=== PATIENT | female | born 1980 | race Caucasian/White ===

== ENCOUNTER → 2017-02-03 | Day surgery (SDC) | payer BC ==
[2017-01-20 09:54] VITALS: Ht 165.1 cm; Wt 97.7 kg
[~2017-02-03] VITALS: Ht 165.1 cm; Wt 97.7 kg
[~2017-02-03] MED LIST: ATEN-173 PO; CEFD1CAP14 PO; LIDOCAINE HCL 2% 2 ML VIAL (20MG/ML) ONE; LISI-461 PO; MIDAZOLAM HCL 1 MG/ML 2ML VIAL ONE; ONDANSETRON INJ 2 MG/ML 2 ML VIAL ONE; PROPOFOL IV EMULSION 10 MG/ML 20 ML VIAL IV ONE; SODIUM CHLORIDE 0.9% 500ML 500 ML IV ONE; TOPI100T20 PO; VENL150T33 PO
[2017-02-03 13:45] VITALS: TEMP 37
--- NOTE | 2017-02-03 14:26 | Endo History and Physical ---
History & Physical Date of Service: Feb 03, 2017. Chief Complaint: RECTAL BLEEDING Referring Physician: DR. ALVAREZ History of Present Illness colonoscopy rectal bleeding Past Surgical History Hx Cardiac Surgery: No Hx Internal Defibrillator: No Hx Pacemaker: No Hx Abdominal Surgery: Yes () Hx of Implantable Prosthesis: No Hx Post-Op Nausea and Vomiting: No Hx Cancer Surgery: No Hx Thoracic Surgery: No Hx Orthopedic: No Hx Urinary Tract Surgery: No Family History Colon CA Social History Smoking Status: Never Smoker Hx Substance Use: No Hx Alcohol Use: No Allergies Coded Allergies: Amoxicillin (Verified Allergy, Unknown, HIVES, 02/03/17) Current Medications Reported Home Medications Medications Dose Route/Sig Max Daily Dose Days Date Category Topamax (Topiramate) 100 Mg Tab 2 Tabs PO HS 01/20/17 Reported Venlafaxine Hcl Er (Venlafaxine Hcl) 150 Mg Tab 1 Tab PO HS 01/20/17 Reported Zestril (Lisinopril) 10 Mg Tab 10 Mg PO HS 08/02/13 Reported Tenormin (Atenolol) 25 Mg Tab 25 Mg PO HS 08/02/13 Reported Vital Signs Weight (Kilograms): 97.73 Height (Feet): 5 Height (Inches): 5 Date Time Temp Pulse Resp B/P Pulse Ox O2 Delivery O2 Flow Rate FiO2 02/03/17 13:45 37 78 20 176/94 99 Room Air 0 Physical Exam AAO x3 Nl s`1s2 Lungs CTA Abd soft NT/ND + BS - CCE Assessment and Plan colonoscopy
--- NOTE | 2017-02-03 14:50 | Discharge Instructions ---
Endoscopy Patient Instructions Date / Procedure(s) Performed Feb 03, 2017. Colonoscopy Allergy Information Coded Allergies: Amoxicillin (Verified Allergy, Unknown, HIVES, 02/03/17) Discharge Date / Findings Feb 03, 2017. hemorrhoids Medication Instructions Restart Stopped Medication(s): Reported Home Medications Medications Dose Route/Sig Max Daily Dose Days Date Category Topamax (Topiramate) 100 Mg Tab 2 Tabs PO HS 01/20/17 Reported Venlafaxine Hcl Er (Venlafaxine Hcl) 150 Mg Tab 1 Tab PO HS 01/20/17 Reported Zestril (Lisinopril) 10 Mg Tab 10 Mg PO HS 08/02/13 Reported Tenormin (Atenolol) 25 Mg Tab 25 Mg PO HS 08/02/13 Reported Reported Home Medications Medications Dose Route/Sig Max Daily Dose Days Date Category Topamax (Topiramate) 100 Mg Tab 2 Tabs PO HS 01/20/17 Reported Venlafaxine Hcl Er (Venlafaxine Hcl) 150 Mg Tab 1 Tab PO HS 01/20/17 Reported Zestril (Lisinopril) 10 Mg Tab 10 Mg PO HS 08/02/13 Reported Tenormin (Atenolol) 25 Mg Tab 25 Mg PO HS 08/02/13 Reported Provider Instructions Activity Restrictions - No exercising or heavy lifting for 24 hours. - Do not drink alcohol the day of the procedure. - Do not drive a car or operate machinery until the day after the procedure. - Do not make any important decisions or sign important papers in 24 hours after the procedure. Following Day: - Return to full activity which may include returning to work/school. Diet Start your diet with liquids and light foods (jello, soup, juice, toast). Then eat your usual diet if not nauseated. Treatment For Common After Affects For mild abdominal pain, bloating, or excessive gas: - Rest - Eat lightly - Lie on right side Follow-Up Information Follow-up with DR. ALVAREZ as scheduled Anesthesia Information What You Should Know You have had a procedure that required some medicine to reduce anxiety and discomfort. This treatment is called moderate sedation. After receiving the treatment, you may be sleepy, but you will be able to breathe on your own. The effects of the treatment may last for several hours. Follow these instructions along with Activity/Diet recommendations noted above: * Do NOT do anything where dizziness or clumsiness would be dangerous. * Rest quietly at home today, then you can be up and about tomorrow. * Have a responsible person stay with you the rest of today. * You may have had an I.V. today. If so, you may take the dressing off later today. Recommendations Call your doctor if: * Trouble breathing * Continuous vomiting for more than 24 hours * Temperature above 101 degrees * Severe abdominal pain or bloating * Pain not relieved by pain medicine ordered * There is increased drainage or redness from any incision * A large amount of rectal bleeding greater than 2-3 tablespoons. (If you had a polyp/s removed or have hemorrhoids, a small amount of blood - from the rectum is to be expected.) * You have any unanswered questions or concerns. IN THE EVENT OF A SERIOUS EMERGENCY, GO TO THE NEAREST EMERGENCY ROOM Your discharge instructions were prepared by provider Remberto Garcia. Patient Instructions Signature Page Colleen Ragland Patient (or Guardian) Signature/Date: I have read and understand the instructions given to me by my caregivers. Caregiver/RN/Doctor Signature/Date: The above-named patient and/or guardian has received patient instructions on this date. + Original Patient Signature Page (only) stays with chart. Please make copy for patient.
--- NOTE | 2017-02-03 15:01 | GI REPORT ---
Procedure Date: 02/03/2017 2:09 PM Procedure: Colonoscopy Indications: Rectal bleeding, Change in bowel habits, Constipation Medicines: Propofol per Anesthesia Complications: No immediate complications. Estimated blood loss: None. Estimated Blood Loss: Estimated blood loss: none. Procedure: Pre-Anesthesia Assessment: - Prior to the procedure, a History and Physical was performed, and patient medications and allergies were reviewed. The patient's tolerance of previous anesthesia was also reviewed. The risks and benefits of the procedure and the sedation options and risks were discussed with the patient. All questions were answered, and informed consent was obtained. Prior Anticoagulants: The patient has taken no previous anticoagulant or antiplatelet agents. ASA Grade Assessment: II - A patient with mild systemic disease. After reviewing the risks and benefits, the patient was deemed in satisfactory condition to undergo the procedure. After I obtained informed consent, the scope was passed under direct vision. Throughout the procedure, the patient's blood pressure, pulse, and oxygen saturations were monitored continuously. The Scope was introduced through the anus and advanced to the terminal ileum, with identification of the appendiceal orifice and IC valve. The colonoscopy was performed without difficulty. The patient tolerated the procedure well. The quality of the bowel preparation was good. Findings: The perianal and digital rectal examinations were normal. Pertinent negatives include normal sphincter tone, no palpable rectal lesions and no anal lesion or abnormality was detected. The colon (entire examined portion) appeared normal. Non-bleeding internal hemorrhoids were found during retroflexion. The hemorrhoids were mild and small. The terminal ileum appeared normal. The retroflexed view of the distal rectum and anal verge was normal and showed no anal or rectal abnormalities. Impression: - The entire examined colon is normal. - Non-bleeding internal hemorrhoids. - The examined portion of the ileum was normal. - The distal rectum and anal verge are normal on retroflexion view. - No specimens collected. Recommendation: - Discharge patient to home (ambulatory). - Resume regular diet. - Continue present medications. - Repeat colonoscopy at age 48 for screening purposes. MD Remberto Ambrosio MD 02/03/2017 2:59:33 PM This report has been signed electronically. Note Initiated On: 02/03/2017 2:09 PM I attest to the content of the Intraoperative Record and orders documented therein, exceptions below
--- NOTE | 2017-02-03 15:18 | Anesthesiology Progress Note ---
Anesthesia Post Op Note Date & Time Feb 03, 2017 at 15:17 Vital Signs Pain Intensity: 0 Vital Signs Past 12 Hours Date Time Temp Pulse Resp B/P Pulse Ox O2 Delivery O2 Flow Rate FiO2 02/03/17 15:07 68 20 119/73 98 Room Air 02/03/17 14:51 68 20 95/64 100 Room Air 02/03/17 13:45 37 78 20 176/94 99 Room Air 0 Notes Mental Status: alert / awake / arousable, participated in evaluation Pt Amnestic to Procedure: Yes Nausea / Vomiting: adequately controlled Pain: adequately controlled Airway Patency, RR, SpO2: stable & adequate BP & HR: stable & adequate Hydration State: stable & adequate Anesthetic Complications: no major complications apparent
[2017-02-03 15:22] VITALS: BP 112/74; PULSE 70; O2SAT 99
== END | disposition home or self-care (01) ==
LOC: C.GI 13:30
PROVIDERS: ATTEND Internal Medicine Gastroenterology
DX: K62.5 Hemorrhage of anus and rectum (principal); K59.00 Constipation, unspecified; K64.8 Other hemorrhoids; Z80.0 Family history of malignant neoplasm of digestive organs; Z88.1 Allergy status to other antibiotic agents; Z98.890 Other specified postprocedural states

== ENCOUNTER 2017-07-05 19:01 | Emergency (ER) | payer BC ==
[~2017-07-05] VITALS: Ht 165.1 cm; Wt 107.1 kg
[~2017-07-05 19:01] MED LIST changes: -CEFD1CAP14 PO; -LIDOCAINE HCL 2% 2 ML VIAL (20MG/ML) ONE; -MIDAZOLAM HCL 1 MG/ML 2ML VIAL ONE; -ONDANSETRON INJ 2 MG/ML 2 ML VIAL ONE; -PROPOFOL IV EMULSION 10 MG/ML 20 ML VIAL IV ONE; -SODIUM CHLORIDE 0.9% 500ML 500 ML IV ONE
[2017-07-05 19:26] VITALS: TEMP 36.7; Ht 165.1 cm; Wt 107.1 kg
[2017-07-05] MEDS ORDERED: MoRPHine SULFATE 2 MG/ML CARP IV STA (21:00)
[2017-07-05] MEDS ORDERED: SODIUM CHLORIDE 0.9% 1000ML 1,000 ML IV STA (21:00)
[2017-07-05] MEDS ORDERED: SODIUM CHLORIDE 0.9% 1000ML 1,000 ML IV ONE (21:00)
[2017-07-05] MEDS ORDERED: ONDANSETRON INJ 2 MG/ML 2 ML VIAL IV STA (21:00)
--- NOTE | 2017-07-05 21:02 | EMERGENCY ROOM VISIT NOTE ---
History Report prepared by Benson: Gonzalo Hawkins Under the Supervision of: Dr. Omar Zambrano M.D. First contact with patient: 20:47 Chief Complaint: FLANK PAIN Stated Complaint: PAIN R SIDE History of Present Illness The patient is a 36 year old female who presents to the Emergency Room with complaints of persistent right lower abdominal pain that started yesterday. She says that the aching pain has been constant, but worsens to a stabbing pain when she stands up. She adds that the pain occasionally radiates to the right side of her back. The patient adds that she has been feeling feverish with chills, and has been having intermittent nausea. The patient says that she had a short episode of sharp chest pain earlier today. She denies any shortness of breath, urinary symptoms, leg pain, or any recent major lifting or strain. The patient notes that she had blood in her stool discovered during a colonoscopy in January. She says that she has a history of hypertension and epilepsy. Her last seizure was not recent. The patient has a history of a hysterectomy, but still has her ovaries, appendix, and gallbladder. She denies any chance of or any history of kidney stones. Source of History: patient, friend Onset: Yesterday Position: abdomen (RLQ) Quality: ache, stabbing (when standing up) Timing: other (persistent) Modifying Factors (Worsening): other (standing up) Associated Symptoms: + fevers, + chills, + chest pain, + nausea, + back pain , No SOB Note: Associated symptoms: Denies leg pain or any recent major lifting or strain. Review of Systems See HPI for pertinent positives & negatives. A total of 10 systems reviewed and were otherwise negative. Past Medical & Surgical Medical Problems: (1) Epilepsy (2) HTN (hypertension) Surgical Problems: (1) History of hysterectomy Old medical records were reviewed. Nurse's notes were reviewed and I agree with. She still has her appendix. Previous hysterectomy Family History No pertinent family history Social History Smoking Status: Never Smoker Alcohol Use: none Marital Status: Current/Historical Medications Scheduled Atenolol (Tenormin), 25 MG PO HS Topiramate (Topamax), 2 TABS PO HS Venlafaxine Hcl (Venlafaxine Hcl Er), 1 TAB PO HS Allergies Coded Allergies: Amoxicillin (Verified Allergy, Unknown, HIVES, 07/05/17) Physical Exam Vital Signs Date Time Temp Pulse Resp B/P (MAP) Pulse Ox O2 Delivery O2 Flow Rate FiO2 07/05/17 23:18 66 18 118/79 99 Room Air 07/05/17 22:12 70 16 120/75 99 Room Air 07/05/17 19:26 36.7 85 16 169/99 100 Room Air Physical Exam General: Well developed well nourished non ill-appearing young female in no acute distress, breathing comfortably on room air. Normal speech HEENT: Normal cephalic atraumatic. Pupils are equal round and reactive to light. Extraocular movements are intact. Oropharynx is pink with moist mucous membranes. No swelling of the mouth lips or tongue. Neck: Supple with a midline trachea. No meningeal signs or stiffness, no JVD or bruits. No Stridor. Chest: Clear to auscultation bilaterally. No wheezes or rhonchi. No increased work of breathing. Heart: regular rate and rhythm. Abdomen: Moderately tender in right lower abdomen, pain worse with movement and palpation. No rash. Soft and nondistended without rebound guarding or rigidity. Extremities: No cyanosis clubbing or edema. No calf tenderness or assymetry Spine/Back. Non tender to palpation. No CVA tenderness Skin: Good turgor without rashes. Neurologic exam: Cranial nerves two through 12 are intact. Motor and sensation are intact and symmetrical throughout. Medical Decision & Procedures Laboratory Results 07/05/17 21:49 Red Blood Count 4.28, Mean Corpuscular Volume 92.1, Mean Corpuscular Hemoglobin 30.1, Mean Corpuscular Hemoglobin Concent 32.7, Mean Platelet Volume 10.3, Neutrophils (%) (Auto) 61.7, Lymphocytes (%) (Auto) 29.4, Monocytes (%) (Auto) 6.8, Eosinophils (%) (Auto) 1.4, Basophils (%) (Auto) 0.6, Neutrophils # (Auto) 5.59, Lymphocytes # (Auto) 2.67, Monocytes # (Auto) 0.62, Eosinophils # (Auto) 0.13, Basophils # (Auto) 0.05 07/05/17 23:01 Test 07/05/17 21:00 07/05/17 21:49 07/05/17 21:54 07/05/17 23:01 Urine Color YELLOW Urine Appearance CLOUDY (CLEAR) Urine pH 7.0 (4.5-7.5) Urine Specific [place] 1.022 (1.000-1.030) Urine Protein NEG (NEG) Urine Glucose (UA) NEG (NEG) Urine Ketones TRACE (NEG) Urine Occult Blood NEG (NEG) Urine Nitrite NEG (NEG) Urine Bilirubin NEG (NEG) Urine Urobilinogen NEG (NEG) Urine Leukocyte Esterase NEG (NEG) Urine WBC (Auto) 5-10 /hpf (0-5) Urine RBC (Auto) 0-4 /hpf (0-4) Urine Hyaline Casts (Auto) 1-5 /lpf (0-5) Urine Epithelial Cells (Auto) >30 /lpf (0-5) Urine Bacteria (Auto) NEG (NEG) Urine Renal Epithelial Cells 0-5 /lpf (0-5) Urine Yeast (Auto) (NONE PRSENT) White Blood Count 9.07 K/uL (4.8-10.8) Red Blood Count 4.28 M/uL (4.2-5.4) Hemoglobin 12.9 g/dL (12.0-16.0) Hematocrit 39.4 % (37-47) Mean Corpuscular Volume 92.1 fL (80-100) Mean Corpuscular Hemoglobin 30.1 pg (25-34) Mean Corpuscular Hemoglobin Concent 32.7 g/dl (32-36) Platelet Count 253 K/uL (130-400) Mean Platelet Volume 10.3 fL (7.4-10.4) Neutrophils (%) (Auto) 61.7 % Lymphocytes (%) (Auto) 29.4 % Monocytes (%) (Auto) 6.8 % Eosinophils (%) (Auto) 1.4 % Basophils (%) (Auto) 0.6 % Neutrophils # (Auto) 5.59 K/uL (1.4-6.5) Lymphocytes # (Auto) 2.67 K/uL (1.2-3.4) Monocytes # (Auto) 0.62 K/uL (0.11-0.59) Eosinophils # (Auto) 0.13 K/uL (0-0.5) Basophils # (Auto) 0.05 K/uL (0-0.2) RDW Standard Deviation 43.8 fL (36.4-46.3) RDW Coefficient of Variation 13.1 % (11.5-14.5) Immature Granulocyte % (Auto) 0.1 % Immature Granulocyte # (Auto) 0.01 K/uL (0.00-0.02) Human Chorionic Gonadotropin, Qual NEG (NEG) Anion Gap 6.0 mmol/L (3-11) Est Creatinine Clear Calc Drug Dose 95.6 ml/min Estimated GFR () 85.9 Estimated GFR (Non- 74.1 BUN/Creatinine Ratio 13.8 (10-20) Calcium Level 8.1 mg/dl (8.5-10.1) Total Bilirubin 0.3 mg/dl (0.2-1) Direct Bilirubin < 0.1 mg/dl (0-0.2) Aspartate Amino Transf (AST/SGOT) 12 U/L (15-37) Alanine Aminotransferase (ALT/SGPT) 26 U/L (12-78) Alkaline Phosphatase 48 U/L (45-117) Total Protein 6.7 gm/dl (6.4-8.2) Albumin 3.3 gm/dl (3.4-5.0) Lipase 153 U/L (73-393) Laboratory studies as stated above per my review. Medications Administered Medications (Trade) Dose Ordered Sig/Ruthie Route Start Time Stop Time Status Last Admin Dose Admin Sodium Chloride 1,000 ml @ 999 mls/hr Q1H1M STAT IV 07/05/17 21:00 07/05/17 22:00 DC 07/05/17 22:08 999 MLS/HR Sodium Chloride 1,000 ml @ 150 mls/hr Q6H40M ONCE IV 07/05/17 21:00 07/06/17 03:39 07/05/17 23:17 150 MLS/HR Ondansetron HCl (Zofran Inj) 4 mg NOW STAT IV 07/05/17 21:00 07/05/17 21:04 DC 07/05/17 22:08 4 MG Morphine Sulfate (MoRPHine SULFATE INJ) 2 mg NOW STAT IV 07/05/17 21:00 07/05/17 21:04 DC 07/05/17 22:10 2 MG Morphine Sulfate (MoRPHine SULFATE INJ) 4 mg NOW STAT IV 07/05/17 23:24 07/05/17 23:26 DC 07/05/17 23:44 4 MG ED Course 2050: Past medical records reviewed. The patient was evaluated in room B5, and a complete history and physical examination were performed. 2099: Ordered Morphine Sulfate Inj 2 mg IV, Zofran Inj 4 mg IV, NSS 1000 ml @ 150 mls/hr IV, NSS 1000 ml @ 999 mls/hr IV. 2131: I reevaluated the patient and she is comfortable. Medical Decision Differentials include but are not limited to: appendicitis, ovarian pathology, kidney stone, , electrolyte or metabolic abnormality. This patient comes in as described above. She's having lower abdominal pain , mostly on the right. She has no peritonitis. IV access established was hydrated with IV normal saline. Multiple blood tests was obtained urinalysis and culture was obtained. I did order noncontrast CAT scan as well. She has no white count or fever to suggest infection. She was initially given IV morphine and Zofran helped a little bit she was given additional dose of morphine and was resting very comfortably. Her urine does not suggest UTI. She is not . She's had a hysterectomy. She had a CAT scan there is no appendicitis or other pathology with exception of 2 cysts on the right ovary. Clinically I do not think she likely has ovarian torsion this been going on since yesterday she looks well. She is not anemic. She's had no electrode or metabolic abnormality. She will use ibuprofen 400 mg every 6 hours for pain and return if : increasing pain, worsening of symptoms, fever or chills, any new problems or concerns. Medication Reconcilliation Current Medication List: was personally reviewed by me Blood Pressure Screening Patient's blood pressure: Elevated blood pressure Blood pressure disposition: Elevated BP felt to be situational, Referred to PCP Impression Primary Impression: RLQ abdominal pain Scribe Attestation The scribe's documentation has been prepared under my direction and personally reviewed by me in its entirety. I confirm that the note above accurately reflects all work, treatment, procedures, and medical decision making performed by me. Departure Information Referrals Mar Ho DO (PCP) Patient Instructions My [facility]
[2017-07-05 21:41] LABS: URINE APPEARANCE CLOUDY (CLEAR); URINE BILIRUBIN NEG (NEG); URINE COLOR YELLOW; URINE EPITHELIAL CELL AUTO >30 /lpf (0-5); URINE NITRITE NEG (NEG); URINE SPECIFIC GRAVITY 1.022 (1.000-1.030); UROBILINOGEN NEG (NEG)
[2017-07-05 21:42] LABS: MANUAL MICROSCOPIC REQUIRED? NO; REVIEW REQ? YES
[2017-07-05 22:03] LABS: BASO % 0.6 %; BASO ABS # 0.05 K/uL (0-0.2); COMPLETE YES; EOS % 1.4 %; HEMATOCRIT 39.4 % (37-47); IG% 0.1 %; LYMPH % 29.4 %; LYMPH ABS # 2.67 K/uL (1.2-3.4); MEAN CELL VOLUME 92.1 fL (80-100); MEAN CORPUSCULAR HEMOGLOBIN 30.1 pg (25-34); MEAN CORPUSCULAR HGB CONC 32.7 g/dl (32-36); MEAN PLATELET VOLUME 10.3 fL (7.4-10.4); MONO % 6.8 %; NEUT % 61.7 %; PLATELET COUNT 253 K/uL (130-400); RED BLOOD COUNT 4.28 M/uL (4.2-5.4); WHITE BLOOD COUNT 9.07 K/uL (4.8-10.8)
[2017-07-05 22:32] LABS: PREG INTERNAL NEGATIVE QC NEG CLEAR BACKGROUND; PREG INTERNAL POSITIVE QC POS CONTROL LINE
--- NOTE | 2017-07-05 22:50 | DIAGNOSTIC IMAGING REPORT ---
ABD/PELVIS NO IV OR ORAL CONT CT DOSE: 1319.70 mGy.cm HISTORY: Flank pain eval for appy TECHNIQUE: Multiaxial CT images of the abdomen and pelvis were performed without contrast. A dose lowering technique was utilized adhering to the principles of ALARA. COMPARISON STUDY: 01/08/2011 FINDINGS: Lung bases are clear. Liver spleen and pancreas are unremarkable. Kidneys are considered negative for hydronephrosis. Bowel pattern is nonobstructive. The appendix is normal. There are 2 right ovarian cysts measuring 4.5 and 4.2 cm. Pelvic bowel pattern is nonobstructive. Bladder is midline. IMPRESSION: 1. Right ovarian cysts measuring 4.5 and 4.2 cm.. 2. Normal appendix. 3. Otherwise negative study The above report was generated using voice recognition software. It may contain grammatical, syntax or spelling errors. Electronically signed by: Vic Lisa M.D. 07/05/2017 10:49 PM Dictated Date/Time: 07/05/2017 10:47 PM
[2017-07-05] MEDS ORDERED: MoRPHine SULFATE 4 MG/ML 1 ML CARP\\VIAL IV STA (23:24)
[2017-07-05 23:43] LABS: ALKALINE PHOSPHATASE 48 U/L (45-117); ALT/SGPT 26 U/L (12-78); AST/SGOT 12 U/L (15-37)
[2017-07-05 23:51] LABS: CHLORIDE 109 mmol/L (98-107); POTASSIUM 3.7 mmol/L (3.5-5.1); SODIUM 141 mmol/L (136-145)
[2017-07-05 23:53] LABS: BLOOD UREA NITROGEN 13 mg/dl (7-18); BUN/CREATININE RATIO 13.8 (10-20); CALCIUM 8.1 mg/dl (8.5-10.1); CARBON DIOXIDE 26 mmol/L (21-32); CREATININE 0.97 mg/dl (0.60-1.20); GLUCOSE 86 mg/dl (70-99)
[2017-07-06 00:21] VITALS: BP 122/73; PULSE 70; O2SAT 97
== END 2017-07-06 00:22 | disposition home or self-care (01) ==
LOC: C.EDB 19:02
DX: R10.31 Right lower quadrant pain (principal); I10 Essential (primary) hypertension; G40.909 Epilepsy, unspecified, not intractable, without status epilepticus; Z79.899 Other long term (current) drug therapy

== ENCOUNTER → 2017-07-13 | Outpatient (CLI) | payer BC ==
[~2017-07-13] MED LIST changes: -LISI-461 PO
[2017-07-13 12:44] LABS: ALT/SGPT 29 U/L (12-78); BLOOD UREA NITROGEN 15 mg/dl (7-18); BUN/CREATININE RATIO 17.1 (10-20); CALCIUM 9.1 mg/dl (8.5-10.1); CARBON DIOXIDE 22 mmol/L (21-32); CHLORIDE 110 mmol/L (98-107); CHOLESTEROL 276 mg/dl (0-200); CREATININE 0.86 mg/dl (0.60-1.20); GLUCOSE 98 mg/dl (70-99); POTASSIUM 4.2 mmol/L (3.5-5.1); SODIUM 138 mmol/L (136-145)
[2017-07-13 12:53] LABS: ALB/GLOB RATIO 0.9 (0.9-2); ALKALINE PHOSPHATASE 53 U/L (45-117); AST/SGOT 24 U/L (15-37); HDL CHOLESTEROL 46 mg/dl; LDL CHOLESTEROL CALCULATED 186 mg/dl; TRIGLYCERIDES 222 mg/dl (0-150); VERY LOW DENSITY LIPOPROT CALC 44 mg/dl
== END | disposition home or self-care (01) ==
LOC: C.LABPBG 08:35
PROVIDERS: ATTEND Family Medicine
DX: R20.9 Unspecified disturbances of skin sensation (principal); I10 Essential (primary) hypertension; E78.00 Pure hypercholesterolemia, unspecified; R22.1 Localized swelling, mass and lump, neck

== ENCOUNTER → 2017-07-18 | Outpatient (CLI) | payer BC ==
--- NOTE | 2017-07-18 13:40 | DIAGNOSTIC IMAGING REPORT ---
PELVIC COMPLETE NON OB CLINICAL HISTORY: R10.31 Right lower quadrant abdominal painN83.209 Ovarian cyst PAIN. NAUSEA. COMPARISON STUDY: 08/10/2011 FINDINGS: The uterus measured prior hysterectomy. The endometrial stripe measured not applicable. The right ovary measured 3.5 cm maximum dimension. Several slightly heterogeneous cyst measuring 1.2, 1.5, and 1.9 cm peripherally.. The left ovary measured 2.6 cm with normal vascular flow. There is no ultrasonographic evidence of ovarian torsion. It should be noted that ovarian torsion can be present with normal Doppler ultrasonographic findings. There was no evidence of pathologic free pelvic fluid. IMPRESSION: Several small right ovarian cyst. Otherwise negative pelvic ultrasound post hysterectomy The above report was generated using voice recognition software. It may contain grammatical, syntax or spelling errors. Electronically signed by: Vic Lisa M.D. 07/18/2017 1:39 PM Dictated Date/Time: 07/18/2017 1:36 PM
--- NOTE | 2017-07-18 13:48 | DIAGNOSTIC IMAGING REPORT ---
NECK ULTRASONOGRAPHY CLINICAL HISTORY: R22.1 Lump in neck COMPARISON STUDY: No previous studies for comparison. FINDINGS: At the point of concern within the left neck below the chin, there is a 1 cm solid nodule which appears to represent a lymph node with thickened cortex. Multiple additional left-sided cervical lymph nodes are visualized. The largest is located adjacent to the carotid measuring 31 x 15 x 9 mm. IMPRESSION: The palpable left neck lymph node, appears to correspond to a lymph node with a thickened cortex. Clinical follow-up is recommended. If the patient is clinically felt to have an infection, then follow-up subsequent antibiotic therapy is recommended. If there is no suspicion over infection, then fine-needle aspiration biopsy should be considered at this time. Electronically signed by: Sony Cano M.D. 07/18/2017 1:47 PM Dictated Date/Time: 07/18/2017 1:43 PM
== END | disposition home or self-care (01) ==
LOC: C.ULTR 12:25
PROVIDERS: ATTEND Family Medicine
DX: R22.1 Localized swelling, mass and lump, neck (principal); N83.209 Unspecified ovarian cyst, unspecified side; R10.31 Right lower quadrant pain

== ENCOUNTER 2022-05-22 22:12 | Observation (INO) ==
[2022-05-22] MEDS ORDERED: dexAMETHasone**PF** 10 MG/ML VIAL IV ONE (22:58)
[2022-05-22] MEDS ORDERED: ONDANSETRON 4 MG OD TAB PO STA (22:58)
[2022-05-22] MEDS ORDERED: MoRPHine SULFATE 4 MG/ML 1 ML CARP\\VIAL IV STA (22:58)
--- NOTE | 2022-05-22 23:04 | Emergency Department Note ---
History of Present Illness General Chief complaint: Back Injury/Pain Stated complaint: RUPTURED VERTEBRAE IN BACK Time Seen by Provider: 05/22/22 22:54 History of Present Illness Maximum Pain Intensity: 10 This 41-year-old presents to the ER complaining of ongoing worsening low back pain that is rating down her right leg that was seen by myself beginning a month and had an MRI and is seeing family doctor and Ortho since then and has an appointment next week with pain management Location: low back Quality: Severe Severity: Severe Duration: Past month Timing: Started a month ago Context: Pain got worse and patient came back in Modifying factors: better with rest; worse with activity Patient states the family doctor has her gabapentin and this is not helping. She states the pain is much worse. She cannot tolerate it. She is having problems while ambulating. Patient denies chest pain, dyspnea, fevers, flulike illness, IV drug use. Home Medications Medication Instructions Recorded Confirmed Type topiramate 100 mg tablet 100 mg PO BID #180 tabs 11/18/21 05/22/22 Rx atenolol 25 mg tablet 25 mg PO DAILY #90 tabs 03/18/22 05/22/22 Rx venlafaxine 150 mg 150 mg PO DAILY #90 caps 03/18/22 05/22/22 Rx capsule,extended release 24 hr phentermine 37.5 mg capsule 37.5 mg PO QAM 05/06/22 05/22/22 History diclofenac sodium 75 mg 75 mg PO BID #60 tabs 05/11/22 05/22/22 Rx tablet,delayed release oxycodone 5 mg tablet 5 mg PO Q6H PRN pain #10 tabs 05/11/22 05/22/22 Rx gabapentin 300 mg capsule See Rx Instructions .Route 05/17/22 05/22/22 Rx .COMPLEX #90 caps acetaminophen 500 mg tablet 1,000 mg PO Q8 PRN Pain 05/22/22 05/22/22 History cyclobenzaprine 5 mg tablet 5 mg PO Q8 PRN Muscle Spasm 05/22/22 05/22/22 History Allergies Allergy/AdvReac Type Severity Reaction Status Date / Time amoxicillin Allergy Unknown HIVES Verified 05/22/22 23:34 Past Med/Surg History Medical History (Updated 05/23/22 @ 01:13 by Farhana Kaiser PA-C) Anxiety Epilepsy HTN (hypertension) Hypercholesterolemia Migraine without aura Obesity Surgical History H/O section S/P total hysterectomy (2012) w/ b/l salpingectomy, secondary to DUB Family History Aunt Breast cancer Seizures Grandmother (Maternal) Breast cancer Myocardial infarction Father Colorectal cancer Diabetes Prostate cancer Grandfather (Paternal) Seizures Mother Hypertension Migraines Denies family history of Ovarian cancer Social History Smoking Status: Never smoker Second Hand Exposure: Yes; Hx Alcohol Use: No Hx Substance Use: No Preferred Language: Monegasque Communication Ability: Effective Visual Impairment: No Limitations Hearing Ability: Normal 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 Required: No Beliefs That Will Affect Care: None marital status: Current Living Situation: Spouse and Family current occupational status: employed current occupation: [employer] Feels Safe at Home: Yes Childhood Exposure to Second-Hand Smoke: No Diet Comment: regular during the past year weight has: remained stable Dental Care, Regularly: Yes Physical Activity Frequency: 3-4 Times per Week Seatbelt Use: always Sunscreen Use: Yes Do you think of yourself as: straight/heterosexual Review of Systems A total of 10 systems reviewed and were otherwise negative Physical Exam Vital Signs Vital Signs - 24 hr 05/22/22 22:29 05/22/22 23:28 05/22/22 23:29 Temperature 36.9 C Temperature Source Temporal Artery Scan Pulse Rate 103 H 76 Pulse Rate [Finger] 74 Pulse Rhythm Regular Pulse Rhythm [Finger] Regular Pulse Strength [Finger] Normal Respiratory Rate 16 18 16 Respiratory Effort / Characteristics Non-Labored Spontaneous Respiratory Depth Normal Respiratory Pattern Regular Blood Pressure 156/109 H Blood Pressure [Right Arm] 147/82 H Blood Pressure Mean 124 Blood Pressure Mean [Right Arm] 103 Blood Pressure Position [Right Arm] Semi-fowlers Pulse Oximetry 98 97 97 Oxygen Delivery Method Room Air Room Air Room Air Oxygen Flow Rate 0 Sepsis Recent Fever Within 48 Hours No Sepsis New/Unexplained Change in Mental Status N/A Sepsis Action Taken by Nursing No Action Required VITALS: Vitals are noted on the nurse's note and reviewed by myself. Vital signs reviewed. GENERAL: Pleasant female who appears in pain, in no acute distress, nondiaphoretic, well-developed well-nourished. SKIN: The skin was without rashes, erythema, edema, or bruising. There is no tenting of the skin. Capillary reflex less than 2 seconds. HEAD: Normocephalic atraumatic. EARS: External auditory canals clear, EYES: Pupils equal round and reactive to light and accommodation. Conjunctivae without injection, sclerae without icterus. Extraocular movements intact. NOSE: Patent, turbinates without inflammation or discharge. MOUTH: Mucous membranes moist. Pharynx without erythema or exudate. Uvula midline. Airway patent. Tongue does not deviate. NECK: Supple without nuchal rigidity. No lymphadenopathy. No thyromegaly. Cervical spine is nontender. No JVD. HEART: Regular rate and rhythm LUNGS: Clear to auscultation bilaterally without wheezes, rales or rhonchi. No retractions or accessory muscle use. ABDOMEN: Positive bowel sounds x 4. Normal tympanic percussion. Soft, nontender, without masses or organomegaly. Ledesma sign negative. No guarding or rebound tenderness. No CVA tenderness MUSCULOSKELETAL: No muscle atrophy, erythema, or edema noted. No thoracic or lumbar tenderness on exam. Positive straight leg raise on the right. Patellar reflexes intact. NEURO: Patient was alert and oriented to person place and time. Normal sensation to light and sharp touch. No focal neurological deficits. Course Administered Medications Discontinued Medications Dexamethasone Sodium Phosphate (DexamethasonePf 10 Mg/Ml Vial) 10 mg IV NOW ONE Stop: 05/22/22 22:59 Last Admin: 05/22/22 23:25 Dose: 10 mg Documented By: EVELIO Acetaminophen (Ofirmev) 1,000 mg in 100 mls @ 400 mls/hr IV NOW STA Stop: 05/23/22 00:45 Last Admin: 05/23/22 00:50 Dose: 400 mls/hr Documented By: EVELIO Ketorolac Tromethamine (Ketorolac Tromethamine 15 Mg/Ml Vial) 10 mg IV NOW STA Stop: 05/23/22 00:32 Last Admin: 05/23/22 00:47 Dose: 10 mg Documented By: EVELIO Morphine Sulfate (Morphine Sulfate 4 Mg/Ml 1 Ml Carp\Vial) 4 mg IV NOW STA Stop: 05/22/22 22:59 Last Admin: 05/22/22 23:23 Dose: 4 mg Documented By: EVELIO Ondansetron HCl (Ondansetron 4 Mg Od Tab) 4 mg PO NOW STA Stop: 05/22/22 22:59 Last Admin: 05/22/22 23:21 Dose: 4 mg Documented By: EVELIO Medical Decision Making Medical Records Attestation: I reviewed the patient's medical records. Home Medications Current Medication List: was personally reviewed by me Laboratory Data Attestation: I reviewed the patient's lab results. Result diagrams: 05/22/22 23:19 05/22/22 23:19 Lab Results 05/22/22 05/22/22 05/22/22 Range/Units 23:19 23:19 23:19 WBC 8.73 (4.8-10.8) K/ul RBC 4.28 (3.93-5.22) M/uL Hgb 13.0 (12.0-16.0) g/dl Hct 39.7 (34.1-44.9) % MCV 92.8 (80.0-100.0) fL MCH 30.4 (25.0-34.0) pg MCHC 32.7 (32.0-36.0) g/dL RDW Std Deviation 44.2 (36.4-46.3) fL RDW Coeff of Norris 13.1 (11.5-14.5) % Plt Count 287 (130-400) K/uL MPV 9.7 (9.4-12.3) fL Immature Gran % (Auto) 0.3 % Neut % (Auto) 60.2 % Lymph % (Auto) 29.4 % Davie % (Auto) 7.7 % Eos % (Auto) 1.7 % Baso % (Auto) 0.7 % Neut # (Auto) 5.25 (1.4-6.5) K/uL Lymph # (Auto) 2.57 (1.2-3.4) K/uL Davie # (Auto) 0.67 (0.24-0.82) K/uL Eos # (Auto) 0.15 (0-0.50) K/uL Baso # (Auto) 0.06 (0-0.2) K/uL Immature Gran # (Auto) 0.03 H (0.00-0.02) K/uL Sodium 138 (136-145) mmol/L Potassium 3.4 L (3.5-5.1) mmol/L Chloride 107 (98-107) mmol/L Carbon Dioxide 23 (21-32) mmol/L Anion Gap 8 (3-11) BUN 17 (6-23) mg/dl Creatinine 0.97 (0.6-1.2) mg/dl Est Cr Clr Drug Dosing 90.2 ml/min Est GFR ( Amer) 82.9 ml/min Est GFR (Non-Af Amer) 71.5 ml/min BUN/Creatinine Ratio 17.5 (10-20) Glucose 149 H (70-99(Fasting)) mg/dl Calcium 9.3 (8.5-10.1) mg/dl Total Bilirubin 0.2 (0.2-1.0) mg/dl AST 12 L (13-39) U/L ALT 19 (7-52) U/L Alkaline Phosphatase 44 (34-104) U/L Total Protein 6.6 (6.0-8.3) gm/dl Albumin 3.7 (3.4-5.0) gm/dl Globulin 2.9 (2.5-4.0) gm/dl Albumin/Globulin Ratio 1.3 (0.9-2) HCG, Qual Negative (Negative) SARS-CoV-2, RNA, NAAT (NEGATIVE) 05/22/22 Range/Units 23:31 WBC (4.8-10.8) K/ul RBC (3.93-5.22) M/uL Hgb (12.0-16.0) g/dl Hct (34.1-44.9) % MCV (80.0-100.0) fL MCH (25.0-34.0) pg MCHC (32.0-36.0) g/dL RDW Std Deviation (36.4-46.3) fL RDW Coeff of Norris (11.5-14.5) % Plt Count (130-400) K/uL MPV (9.4-12.3) fL Immature Gran % (Auto) % Neut % (Auto) % Lymph % (Auto) % Davie % (Auto) % Eos % (Auto) % Baso % (Auto) % Neut # (Auto) (1.4-6.5) K/uL Lymph # (Auto) (1.2-3.4) K/uL Davie # (Auto) (0.24-0.82) K/uL Eos # (Auto) (0-0.50) K/uL Baso # (Auto) (0-0.2) K/uL Immature Gran # (Auto) (0.00-0.02) K/uL Sodium (136-145) mmol/L Potassium (3.5-5.1) mmol/L Chloride (98-107) mmol/L Carbon Dioxide (21-32) mmol/L Anion Gap (3-11) BUN (6-23) mg/dl Creatinine (0.6-1.2) mg/dl Est Cr Clr Drug Dosing ml/min Est GFR ( Amer) ml/min Est GFR (Non-Af Amer) ml/min BUN/Creatinine Ratio (10-20) Glucose (70-99(Fasting)) mg/dl Calcium (8.5-10.1) mg/dl Total Bilirubin (0.2-1.0) mg/dl AST (13-39) U/L ALT (7-52) U/L Alkaline Phosphatase (34-104) U/L Total Protein (6.0-8.3) gm/dl Albumin (3.4-5.0) gm/dl Globulin (2.5-4.0) gm/dl Albumin/Globulin Ratio (0.9-2) HCG, Qual (Negative) SARS-CoV-2, RNA, NAAT NEGATIVE (NEGATIVE) MDM Narrative Prior records/ancillary studies reviewed. Triage Nursing notes reviewed. Additional history obtained from family. The patient's history was concerning for back pain. Differential diagnosis: Etiologies such as musculoskeletal, disc herniation, fracture, aortic disease, metastatic disease, cord compression, discitis, infection, renal colic, gastrointestinal, acute exacerbation of chronic back pain, sciatica, cauda equina, as well as others were entertained. Physical findings: As above. ER treatment provided: Morphine Zofran Decadron, Tylenol, Toradol On reassessment the patient felt better. Diagnostics interpreted by me: The labs revealed stable H&H Imaging studies: Recent MRI was reviewed Consultation: A consultation was placed with hospitalist. The case was discussed and diagnostics were reviewed. She will be evaluated for possible admission. This appears to be consistent with intractable low back pain. Patient is requesting admission. Medicine was consulted. She will be evaluated for possible admission. By the evaluation outlined above emergent etiologies such as fracture, aortic disease, metastatic disease, infection, renal colic, gastrointestinal, cord compression, cauda equina, as well as others were deemed relatively unlikely. The pt informed about the findings as listed above. All questions were answered and pleased with the treatment. The chart was completed utilizing [employer] Speech voice recognition software. Grammatical errors, random word insertions, pronoun errors, and incomplete sentences are an occassional consequence of this system due to software limitations, ambient noise, and hardware issues. Any formal questions or concerns about the content, text, or information contained within the body of this dictation should be directly addressed to the physician transportation assistant for clarification. Impression & Plan Intractable low back pain, Lumbar radiculopathy Discharge Plan Visit Data Chief Complaint: Back Injury/Pain Stated Complaint: RUPTURED VERTEBRAE IN BACK ED Provider: Andria Dutta ED Midlevel Provider: Farhana Kaiser Discharge Problem: Intractable low back pain, Lumbar radiculopathy Patient Disposition: Being Evaluated by Hospitalist Condition: Good Forms Stand Alone Forms: [facility] [employer] Prescriptions Prescriptions: No Action topiramate 100 mg tablet 100 mg PO BID Qty: 180 1RF atenolol 25 mg tablet 25 mg PO DAILY Qty: 90 1RF venlafaxine 150 mg capsule,extended release 24hr 150 mg PO DAILY Qty: 90 1RF gabapentin 300 mg capsule See Rx Instructions .Route .COMPLEX Qty: 90 2RF Rx Instructions: Take 1 cap PO qhs x 3 days, then 1 cap PO BID x 3 days, then 1 cap PO TID; diclofenac sodium 75 mg tablet,delayed release (DR/EC) 75 mg PO BID Qty: 60 0RF oxycodone 5 mg tablet 5 mg PO Q6H PRN (Reason: pain) Qty: 10 0RF Rx Instructions: Initial Treatment cyclobenzaprine 5 mg tablet 5 mg PO Q8 PRN (Reason: Muscle Spasm) acetaminophen 500 mg tablet 1,000 mg PO Q8 PRN (Reason: Pain) phentermine 37.5 mg capsule 37.5 mg PO QAM Referrals Referrals: Mar Ho DO [Primary Care Provider] -
[2022-05-22 23:31] LABS: Basophils # (auto) 0.06 K/uL (0-0.2); Basophils % (auto) 0.7 %; Eosinophils # (auto) 0.15 K/uL (0-0.50); Eosinophils % (auto) 1.7 %; Hematocrit (blood only) 39.7 % (34.1-44.9); Immature Granulocytes # (auto) 0.03 K/uL (0.00-0.02); Immature Granulocytes % (auto) 0.3 %; Lymphocytes # (auto) 2.57 K/uL (1.2-3.4); Lymphocytes % (auto) 29.4 %; Mean Corpuscular Hemoglobin 30.4 pg (25.0-34.0); Mean Corpuscular Hgb Conc 32.7 g/dL (32.0-36.0); Mean Corpuscular Volume 92.8 fL (80.0-100.0); Mean Platelet Volume 9.7 fL (9.4-12.3); Monocytes # (auto) 0.67 K/uL (0.24-0.82); Monocytes % (auto) 7.7 %; Neutrophils # (auto) 5.25 K/uL (1.4-6.5); Neutrophils % (auto) 60.2 %; Platelet Count 287 K/uL (130-400); RDW Coefficient of Variation 13.1 % (11.5-14.5); RDW Standard Deviation 44.2 fL (36.4-46.3); Red Blood Count 4.28 M/uL (3.93-5.22); White Blood Count 8.73 K/ul (4.8-10.8)
[2022-05-22 23:51] LABS: Albumin Globulin Ratio 1.3 (0.9-2); Albumin Level 3.7 gm/dl (3.4-5.0); BUN Creatinine Ratio 17.5 (10-20); Bilirubin,Total 0.2 mg/dl (0.2-1.0); Calcium 9.3 mg/dl (8.5-10.1); Creatinine Clr Calc Pharmacy 90.2 ml/min; Est GFR (African American) 82.9 ml/min; Est GFR (Non-African American) 71.5 ml/min; Globulin 2.9 gm/dl (2.5-4.0); Potassium 3.4 mmol/L (3.5-5.1); Total Protein 6.6 gm/dl (6.0-8.3)
[2022-05-22 23:53] LABS: Pregnancy Test, Serum Negative (Negative)
[2022-05-23] MEDS ORDERED: ACETAMINOPHEN 1,000 MG/100 ML VIAL IV STA (00:31)
[2022-05-23] MEDS ORDERED: KETOROLAC TROMETHAMINE 15 MG/ML VIAL IV STA (00:31)
--- NOTE | 2022-05-23 01:18 | History & Physical Report ---
Date of Service May 23, 2022 Assessment & Plan (1) Herniated nucleus pulposus, L3-4 right: Plan: Right HNP L3-4/right L4 radiculopathy/intractable low back pain/right lower extremity numbness and subjective weakness- Received dexamethasone 10 mg IV in the ED Continue dexamethasone 6 mg IV every 8 hours Acetaminophen 650 mg p.o. every 6 hours as needed mild pain or fever Oxycodone 5 mg p.o. every 6 hours as needed moderate pain Patient prefers to not have narcotic medications. Consult neurosurgery spine surgery Dr. Quinoness, whose office she was seen and recently (2) Intractable low back pain: Plan: See above (3) Lumbar radiculopathy: Plan: See above (4) Obesity: Plan: Continue phentermine (5) Anxiety: Plan: Anxiety/epilepsy- Continue gabapentin, topiramate and venlafaxine (6) Epilepsy: Plan: See above (7) HTN (hypertension): Plan: Continue atenolol History of Present Illness Chief Complaint: The patient presents to the emergency department with persistent gradual worse stephen of low back pain and right lower extremity radiculopathy over the past month Primary Care Provider: Mar Ho DO The patient is a 41-year-old female with a past medical history including low back pain, lumbar radiculopathy, obesity, hypercholesterolemia, anxiety, migraine without aura, hypertension and epilepsy. She presents to the emergency department with inability to tolerate her progressive low back pain and right lower extremity weakness and numbness. She has been followed by her PCP, and was recently seen by [facility], and has a pending appointment with Dr. Nguyen for pain management. She reports that she is unaware of how the pain began, she says she woke up 1 day and it was there. Allergies Allergy/AdvReac Type Severity Reaction Status Date / Time amoxicillin Allergy Unknown HIVES Verified 05/22/22 23:34 Home Medications Medication Instructions Recorded Confirmed Type topiramate 100 mg tablet 100 mg PO BID #180 tabs 11/18/21 05/22/22 Rx atenolol 25 mg tablet 25 mg PO DAILY #90 tabs 03/18/22 05/22/22 Rx venlafaxine 150 mg 150 mg PO DAILY #90 caps 03/18/22 05/22/22 Rx capsule,extended release 24 hr phentermine 37.5 mg capsule 37.5 mg PO QAM 05/06/22 05/22/22 History diclofenac sodium 75 mg 75 mg PO BID #60 tabs 05/11/22 05/22/22 Rx tablet,delayed release oxycodone 5 mg tablet 5 mg PO Q6H PRN pain #10 tabs 05/11/22 05/22/22 Rx gabapentin 300 mg capsule See Rx Instructions .Route 05/17/22 05/22/22 Rx .COMPLEX #90 caps acetaminophen 500 mg tablet 1,000 mg PO Q8 PRN Pain 05/22/22 05/22/22 History cyclobenzaprine 5 mg tablet 5 mg PO Q8 PRN Muscle Spasm 05/22/22 05/22/22 History Past Med/Surg History Medical History (Updated 05/23/22 @ 03:25 by Kam Kinney MD) Anxiety Epilepsy Herniated nucleus pulposus, L3-4 right HTN (hypertension) Hypercholesterolemia Migraine without aura Obesity Surgical History H/O section S/P total hysterectomy (2012) w/ b/l salpingectomy, secondary to DUB Family History Aunt Breast cancer Seizures Grandmother (Maternal) Breast cancer Myocardial infarction Father Colorectal cancer Diabetes Prostate cancer Grandfather (Paternal) Seizures Mother Hypertension Migraines Denies family history of Ovarian cancer Social History Smoking Status: Never smoker Second Hand Exposure: Yes; Hx Alcohol Use: No Hx Substance Use: No Preferred Language: Urdu Communication Ability: Effective Visual Impairment: No Limitations Hearing Ability: Normal Vitreo Retinal Surgeon Required: No Beliefs That Will Affect Care: None marital status: Current Living Situation: Spouse and Family current occupational status: employed current occupation: No [employer] station Other Information That Helps Us Care for You: No Feels Safe at Home: Yes Safety Concerns: Feels Safe At This Time Childhood Exposure to Second-Hand Smoke: No Diet Comment: regular during the past year weight has: remained stable Dental Care, Regularly: Yes Physical Activity Frequency: 3-4 Times per Week Seatbelt Use: always Sunscreen Use: Yes Do you think of yourself as: straight/heterosexual Assistive Devices: Glasses Assistive Devices Comment: partial denture Review of Systems Review of Systems: The patient denies chest pain, palpitations, shortness of breath, dyspnea on exertion, cough, lower extremity swelling, sore throat, fevers, chills, sweats, weight change, fatigue, nausea, vomiting, diarrhea , constipation, abdominal pain, pelvic pain, blood in urine or stool, dysuria, urinary frequency or urgency, lightheadedness, dizziness, headache, memory loss, loss of consciousness, rash, abnormal bruising or bleeding, imbalance, focal or generalized weakness, numbness or tingling in arms, generalized arthralgias or myalgias, neck pain, or night sweats. The review of systems is otherwise negative other than for that already noted above, and at least 10 systems have been reviewed. Physical Exam Physical Exam: The patient is awake, alert and oriented 3, well developed and well nourished, normocephalic and atraumatic, lying in bed and in no acute distress. HEENT--PERRL, EOMI, mucous membranes and oropharynx normal. Neck--supple. No JVD. No bruits. Thyroid normal, trachea midline, no adenopathy. Heart--normal S1 and S2. No murmurs, rubs or gallops. Lungs--clear bilaterally, no respiratory distress, no accessory muscle use. Abdomen--normal bowel sounds and soft. Nontender. Nondistended. Morbidly obese Extremities--no cyanosis or clubbing. No edema. Dermatologic--normal skin turgor, normal color, no abnormal lymph nodes, no rash. Neurologic--cranial nerves II through XII grossly intact. Rheumatologic--limited exam due to low back pain Psychiatric--normal affect. Results & Data Results & Data ([place]) Vital Signs (Past 12 Hours) Vital Signs Temp Pulse Pulse Resp BP BP Pulse Ox 05/22/22 23:29 74 16 147/82 H 97 05/22/22 23:28 76 18 97 05/22/22 22:29 36.9 C 103 H 16 156/109 H 98 O2 Del Method O2 Flow Rate 05/22/22 23:29 Room Air 05/22/22 23:28 Room Air 0 05/22/22 22:29 Room Air Laboratory Results Laboratory Results WBC 8.73 K/ul (4.8-10.8) 05/22/22 23:19 RBC 4.28 M/uL (3.93-5.22) 05/22/22 23:19 Hgb 13.0 g/dl (12.0-16.0) 05/22/22 23:19 Hct 39.7 % (34.1-44.9) 05/22/22 23:19 MCV 92.8 fL (80.0-100.0) 05/22/22 23:19 MCH 30.4 pg (25.0-34.0) 05/22/22 23:19 MCHC 32.7 g/dL (32.0-36.0) 05/22/22 23: RDW Std Deviation 44.2 fL (36.4-46.3) 05/22/22 23:19 RDW Coeff of Norris 13.1 % (11.5-14.5) 05/22/22 23:19 Plt Count 287 K/uL (130-400) 05/22/22 23:19 MPV 9.7 fL (9.4-12.3) 05/22/22 23:19 Immature Gran % (Auto) 0.3 % 05/22/22 23:19 Neut % (Auto) 60.2 % 05/22/22 23:19 Lymph % (Auto) 29.4 % 05/22/22 23:19 [place] % (Auto) 7.7 % 05/22/22 23:19 Eos % (Auto) 1.7 % 05/22/22 23:19 Baso % (Auto) 0.7 % 05/22/22 23:19 Neut # (Auto) 5.25 K/uL (1.4-6.5) 05/22/22 23:19 Lymph # (Auto) 2.57 K/uL (1.2-3.4) 05/22/22 23:19 [place] # (Auto) 0.67 K/uL (0.24-0.82) 05/22/22 23:19 Eos # (Auto) 0.15 K/uL (0-0.50) 05/22/22 23:19 Baso # (Auto) 0.06 K/uL (0-0.2) 05/22/22 23:19 Immature Gran # (Auto) 0.03 K/uL (0.00-0.02) H 05/22/22 23:19 Sodium 138 mmol/L (136-145) 05/22/22 23:19 Potassium 3.4 mmol/L (3.5-5.1) L 05/22/22 23:19 Chloride 107 mmol/L (98-107) 05/22/22 23:19 Carbon Dioxide 23 mmol/L (21-32) 05/22/22 23:19 Anion Gap 8 (3-11) 05/22/22 23:19 BUN 17 mg/dl (6-23) 05/22/22 23:19 Creatinine 0.97 mg/dl (0.6-1.2) 05/22/22 23:19 Est Cr Clr Drug Dosing 90.2 ml/min 05/22/22 23:19 Est GFR ( Amer) 82.9 ml/min 05/22/22 23:19 Est GFR (Non-Af Amer) 71.5 ml/min 05/22/22 23:19 BUN/Creatinine Ratio 17.5 (10-20) 05/22/22 23:19 Glucose 149 mg/dl (70-99(Fasting)) H 05/22/22 23:19 Calcium 9.3 mg/dl (8.5-10.1) 05/22/22 23:19 Total Bilirubin 0.2 mg/dl (0.2-1.0) 05/22/22 23:19 AST 12 U/L (13-39) L 05/22/22 23:19 ALT 19 U/L (7-52) 05/22/22 23:19 Alkaline Phosphatase 44 U/L (34-104) 05/22/22 23:19 Total Protein 6.6 gm/dl (6.0-8.3) 05/22/22 23:19 Albumin 3.7 gm/dl (3.4-5.0) 05/22/22 23:19 Globulin 2.9 gm/dl (2.5-4.0) 05/22/22 23:19 Albumin/Globulin Ratio 1.3 (0.9-2) 05/22/22 23:19 HCG, Qual Negative (Negative) 05/22/22 23:19 SARS-CoV-2, RNA, NAAT NEGATIVE (NEGATIVE) 05/22/22 23:31 Diagnostic Findings [facility], [place] [phone] Magnetic Resonance Report Patient:SHELDON FABIAN Admit Date:05/06/22 MR#:[id number] Address[address] Acct ID:[id number] Address2: Date:1980 [facility] Zip:[place] [address] Age:41 Location:ED Sex:F Room/Bed: Att Phy: Diagnosis:PINCHED NERVE Jocelyn Phy:Mar Ho DO Service Date:05/07/22 Fam Phy: Interpreting Phy:Popeye AcevedoAdmit Phy: Ordering Phy:Farhana Kaiser PA-C cc: ~ MR lumbar spine wo/w con CLINICAL HISTORY: 41 years-old Female with severe pain, right leg weak/numb. Subacute low back pain with acute right lower extremity radicular symptoms. COMPARISON: CT lumbar spine 04/08/2022 TECHNIQUE: Multiplanar, multi sequence MRI of the lumbar spine was performed without intravenous contrast. FINDINGS: Mildly motion degraded exam. No acute intra-abdominal or paraspinal abnormality. No acute fracture, subluxation, endplate erosion, suspicious bone lesion or significant marrow edema. The conus medullaris terminates at the T12-L1 level. Signal within the imaged thoracic spinal cord and cauda equina is unremarkable. 1.2 cm T11 and 1.0 cm L1 vertebral body hemangiomata. Mild multilevel facet arthrosis. T12-L1: No central canal or neural foraminal stenosis. L1-L2: No central canal or neural foraminal stenosis. L2-L3: No central canal or neural foraminal stenosis. L3-L4: Mild intervertebral disc space narrowing with disc desiccation. Small posterior annular disc bulge. Annular fissure with right paracentral/right lateral recess disc protrusion measuring approximately 1.7 cm transversely. This abuts and posteriorly displaces the right L4 nerve root resulting in moderate right lateral recess narrowing. Additionally, there is mild central canal stenosis, AP dimension of the thecal sac measuring 8.5 mm. The left neural foramen is patent. Moderate right neural foraminal narrowing. L4-L5: No central canal or neural foraminal stenosis. L5-S1: Mild intervertebral disc space narrowing with disc desiccation. Small central disc protrusion flattens the ventral thecal sac and abuts the right S1 nerve root. No significant central canal or neural foraminal narrowing. IMPRESSION: 1. Discogenic degeneration at L3-L4 with right paracentral/right lateral recess disc protrusion abutting and displacing the right L4 nerve root resulting in moderate right lateral recess stenosis with mild central canal and moderate right foraminal narrowing. 2. Mild discogenic degeneration at L5-S1. ACT 112: Negative or not required by law. The above report was generated using voice recognition software. It may contain grammatical, syntax or spelling errors. Dictated: 05/07/2022 8:50 AM Transcribed: 05/07/2022 1:33 PM Arlene [id number] JANE_Dixon Electronically signed by: Popeye Acevedo M.D. 05/07/2022 4:04 PM Dictated:05/07/22 0850 Transcribed: 05/07/22 1333 Code Status & VTE Plan Code Status Full code VTE Prophylaxis Plan VTE Prophylaxis will be ordered: Yes PG Care Time/CCT Total # of Minutes Spent Total Time Spent with Patient: Total time spent is greater than 50% in coordination of care (as documented) at patient's floor/unit and/or counseling patient: Coding Level of Care Code INT OBSERVATION CARE 70M LVL 3 Diagnoses Herniated nucleus pulposus, L3-4 right M51.26 Intractable low back pain M54.59 Lumbar radiculopathy M54.16 Obesity E66.9 Anxiety F41.9 Epilepsy G40.909 HTN (hypertension) I10
[2022-05-23] MEDS ORDERED: ONDANSETRON INJ 2 MG/ML 2 ML VIAL IV PRN (02:45)
[2022-05-23] MEDS ORDERED: CYCLOBENZAPRINE HCL 5 MG TAB PO PRN (02:45)
[2022-05-23] MEDS ORDERED: oxyCODONE HCL IR 5 MG TAB (IMMEDIATE RELEASE) PO PRN (02:45)
[2022-05-23] MEDS ORDERED: ACETAMINOPHEN 500 MG TAB PO PRN (02:45)
[2022-05-23] MEDS ORDERED: HYDROmorphone INJ 0.5 MG/0.5 ML SYR IV PRN (04:08)
[2022-05-23] MEDS: dexAMETHasone 6 MG in SYRINGE 0 ML IV SCH ×3 (06:10→22:39)
--- NOTE | 2022-05-23 07:45 | Orthopedic Consultation ---
Date of Consultation May 23, 2022 Assessment & Plan (1) Herniated nucleus pulposus, L3-4 right: Patient presents with significant increase in pain over the past week. Her leg pain is hindering her ability to stand and walk a distance. I had a nic discussion with the patient in terms of treatment options. She really is trying to avoid surgery if at all possible at this point. We will consult pain management and see if they could perform an epidural while she is here to see if this can calm her symptoms down to get her home and hopefully this will resorb and resolve on its own. If not she may be looking at surgical intervention sometime in the near future. I will discuss case with Dr. Shane and he will review the films tomorrow. History of Present Illness Attending Physician: Kam Kinney MD History of Present Illness Patient is a pleasant 41-year-old female who was seen in our office less than a week ago. At the time she was noted to have right radicular complaints as well as lower back pain. We had initiated a conservative treatment course however over the weekend her symptoms significantly increased to the point where she could barely stand or walk. All the pain is in the right thigh going just past the knee to the lateral portion of the right bush. She not having symptoms on the left-hand side. She has a mild amount of lower back pain but the leg pain is predominant. MRI was repeated here at the hospital and she was admitted to the medical service. Patient states the pain is quite severe. She cannot find a comfortable position. When she tried to walk the leg felt like it is going to buckle and give out on her. She denies any loss of bladder or bowel function. She denies any symptoms on the left-hand side. Allergies Allergy/AdvReac Type Severity Reaction Status Date / Time amoxicillin Allergy Unknown HIVES Verified 05/22/22 23:34 Home Medications Medication Instructions Recorded Confirmed Type topiramate 100 mg tablet 100 mg PO BID #180 tabs 11/18/21 05/22/22 Rx atenolol 25 mg tablet 25 mg PO DAILY #90 tabs 03/18/22 05/22/22 Rx venlafaxine 150 mg 150 mg PO DAILY #90 caps 03/18/22 05/22/22 Rx capsule,extended release 24 hr phentermine 37.5 mg capsule 37.5 mg PO QAM 05/06/22 05/22/22 History diclofenac sodium 75 mg 75 mg PO BID #60 tabs 05/11/22 05/22/22 Rx tablet,delayed release oxycodone 5 mg tablet 5 mg PO Q6H PRN pain #10 tabs 05/11/22 05/22/22 Rx gabapentin 300 mg capsule See Rx Instructions .Route 05/17/22 05/22/22 Rx .COMPLEX #90 caps acetaminophen 500 mg tablet 1,000 mg PO Q8 PRN Pain 05/22/22 05/22/22 History cyclobenzaprine 5 mg tablet 5 mg PO Q8 PRN Muscle Spasm 05/22/22 05/22/22 History Patient History Medical History (Updated 05/23/22 @ 03:25 by Kam Kinney MD) Anxiety Epilepsy Herniated nucleus pulposus, L3-4 right HTN (hypertension) Hypercholesterolemia Migraine without aura Obesity Surgical History H/O section S/P total hysterectomy (2012) w/ b/l salpingectomy, secondary to DUB Family History Aunt Breast cancer Seizures Grandmother (Maternal) Breast cancer Myocardial infarction Father Colorectal cancer Diabetes Prostate cancer Grandfather (Paternal) Seizures Mother Hypertension Migraines Denies family history of Ovarian cancer Social History Smoking Status: Never smoker Second Hand Exposure: Yes; Hx Alcohol Use: No Hx Substance Use: No Preferred Language: Swedish Communication Ability: Effective Visual Impairment: No Limitations Hearing Ability: Normal Electronic Warfare Officer Required: No Beliefs That Will Affect Care: None marital status: Current Living Situation: Spouse and Family current occupational status: employed current occupation: [employer] Other Information That Helps Us Care for You: No Feels Safe at Home: Yes Safety Concerns: Feels Safe At This Time Childhood Exposure to Second-Hand Smoke: No Diet Comment: regular during the past year weight has: remained stable Dental Care, Regularly: Yes Physical Activity Frequency: 3-4 Times per Week Seatbelt Use: always Sunscreen Use: Yes Do you think of yourself as: straight/heterosexual Assistive Devices: Glasses Assistive Devices Comment: partial denture Physical Exam Physical Exam: On exam she is alert and oriented. She has altered sensation and hyperesthesia in the right anterior thigh. Her lower extreme motor exam reveals no focal atrophy or strength 5 out of 5 to detailed muscle testing with BRCA1 testing the quadricep. Her abdomen soft and nontender her calves are supple nontender. Her pulses are palpable in the posterior tibialis and dorsalis pedis regions. She is nontender with internal or external rotation of the hips. She has full range of motion of the hips and knees. She is nontender along the lower portion of the back. Results & Data ([facility]) Vital Signs (Past 12 Hours) Vital Signs Temp Pulse Pulse Resp BP BP Pulse Ox 05/23/22 07:37 36.5 C 81 16 119/78 95 05/23/22 02:52 05/23/22 02:51 36.8 C 84 21 154/101 H 96 05/23/22 02:28 74 16 128/76 95 05/22/22 23:29 74 16 147/82 H 97 05/22/22 23:28 76 18 97 05/22/22 22:29 36.9 C 103 H 16 156/109 H 98 O2 Del Method O2 Flow Rate 05/23/22 07:37 Room Air 05/23/22 02:52 Room Air 05/23/22 02:51 Room Air 05/23/22 02:28 Room Air 05/22/22 23:29 Room Air 05/22/22 23:28 Room Air 0 05/22/22 22:29 Room Air Diagnostic Findings MRI of the lumbar spine is available for review. This reveals an L3-4 right- sided disc herniation with superior migration of free fragment which is adjacent to the L3 pedicle. There is a central component to the disc herniation as well. There is degenerative disc disease at L5-S1 with a central disc protrusion causing indentation of the thecal sac but no significant neurologic compression.
[2022-05-23 08:20] LABS: BUN Creatinine Ratio 20.5 (10-20); Calcium 9.2 mg/dl (8.5-10.1); Creatinine Clr Calc Pharmacy 104.6 ml/min; Est GFR (African American) 100.1 ml/min; Est GFR (Non-African American) 86.4 ml/min; Phosphorus 2.4 mg/dl (2.5-4.9); Potassium 4.7 mmol/L (3.5-5.1)
[2022-05-23] MEDS ORDERED: ATENOLOL 25 MG TABLET PO SCH ×2 (09:00→21:00)
[2022-05-23] MEDS ORDERED: ENOXAPARIN INJ 40 MG/0.4 ML SYR SQ SCH (09:00)
[2022-05-23] MEDS ORDERED: VENLAFAXINE HCL XR 150 MG CAPXR PO SCH ×2 (09:00→21:00)
[2022-05-23] MEDS ORDERED: TOPIRAMATE 100 MG TAB PO SCH ×2 (09:00→21:00)
[2022-05-23] MEDS: GABAPENTIN 300 MG CAP PO SCH ×3 (09:51→21:07)
[2022-05-23] MEDS: DICLOFENAC SODIUM 75 MG TABCR PO SCH ×2 (09:55→21:07)
[2022-05-23] MEDS ORDERED: Nursing to Pharmacy Communication SCH (10:30)
[2022-05-23] MEDS ORDERED: MoRPHine SULFATE 4 MG/ML 1 ML CARP\\VIAL IV PRN (14:41)
--- NOTE | 2022-05-23 14:45 | Hospitalist Progress Note ---
Date of Service May 23, 2022 Assessment & Plan (1) Herniated nucleus pulposus, L3-4 right: Plan: - Right HNP L3-4/right L4 radiculopathy/intractable low back pain/right lower extremity numbness and subjective weakness- - Received dexamethasone 10 mg IV in the ED - Continue dexamethasone 6 mg IV every 8 hours - Acetaminophen 1000mg p.o. every 8 hours as needed mild pain or fever - Oxycodone 10mg q4h prn moderate pain (4-6) and Morphine 4mg IV q4h prn severe pain (7-10) - Consult neurosurgery spine surgery Dr. Shane, seen by DEB, appreciate recommendations - Pain management consulted, appreciate recommendations (2) Obesity: Plan: - Continue phentermine (3) Anxiety: Plan: Anxiety/epilepsy- Continue gabapentin, topiramate and venlafaxine (4) Epilepsy: Plan: - See above (5) HTN (hypertension): Plan: - Continue atenolol, well controlled Plan Pain control, await pain management input - hopefully will be candidate for JACKIE and can be d/c'd home tomorrow. Plan d/w Dr. Cobos. Admission and Anticipated Discharge Date Admission Date: May 23, 2022 Subjective Patient seen on daily rounds this morning. She is resting comfortably in bed, reports pain is improved compared to last evening. Denies cp or dyspnea. Notes that Morphine seems to provide the most relief. Continues to state she would like to avoid surgery if possible. Pain management has been consulted for consideration of JACKIE. Pt w/o loss of bowel/bladder control. Pain radiates from back down her right leg. Review of Systems Review of Systems: All systems reviewed and are unremarkable except as noted in HPI and below. Denies fever, chills, fatigue, headache, nasal congestion, sore throat, cough, chest pain, shortness of breath, palpitations, orthopnea, PND, abdominal pain, n/v/d, constipation, dysuria, hematuria, frequency, joint pain or swelling, easy bruising or bleeding, skin lesions or rashes. Physical Exam Physical Exam: GENERAL: 41 yo middle aged obese WF. NAD. LUNGS: Clear to auscultation bilaterally. No W/R/R. CARDIOVASCULAR: Regular rate and rhythm. No M/G/R. No JVD. ABDOMEN: Soft, non-tender and non-distended. BS normal x 4 quad. EXTREMITIES: No edema. Non-tender. Peripheral pulses +2/4. NEUROLOGIC: A&O x3. Nonfocal PSYCHIATRIC: Cooperative. Appropriate mood and affect. SKIN: Warm, dry, intact. No rashes or lesions. Results & Data Results & Data ([facility]) Vital Signs (Past 12 Hours) Vital Signs Temp Pulse Resp BP Pulse Ox O2 Del Method 05/23/22 14:38 37.1 C 114 H 16 121/73 95 Room Air 05/23/22 07:37 36.5 C 81 16 119/78 95 Room Air 05/23/22 02:52 Room Air 05/23/22 02:51 36.8 C 84 21 154/101 H 96 Room Air Laboratory Results 05/22/22 23:19 05/23/22 07:10 PG Care Time/CCT Total # of Minutes Spent Total Time Spent with Patient: Total time spent is greater than 50% in coordination of care (as documented) at patient's floor/unit and/or counseling patient: Coding Level of Care Code 55716 Subseq Obs Care Lvl 2 Diagnoses Herniated nucleus pulposus, L3-4 right M51.26 Obesity E66.9 Anxiety F41.9 Epilepsy G40.909 HTN (hypertension) I10
[2022-05-23] MEDS: oxyCODONE HCL IR 5 MG TAB (IMMEDIATE RELEASE) PO PRN (18:37)
[2022-05-23] MEDS ORDERED: ALUMINUM/MAGNESIUM/SIMETH (MAALOX MAX) 30 ML UDC PO STA (20:13)
[2022-05-24] MEDS: dexAMETHasone 6 MG in SYRINGE 0 ML IV SCH (06:16)
[2022-05-24 08:03] LABS: Albumin Level 3.5 gm/dl (3.4-5.0); BUN Creatinine Ratio 27.5 (10-20); Calcium 8.7 mg/dl (8.5-10.1); Creatinine Clr Calc Pharmacy 95.4 ml/min; Est GFR (African American) 89.6 ml/min; Est GFR (Non-African American) 77.3 ml/min; Phosphorus 3.6 mg/dl (2.5-4.9); Potassium 4.1 mmol/L (3.5-5.1)
[2022-05-24] MEDS: DICLOFENAC SODIUM 75 MG TABCR PO SCH (08:13)
[2022-05-24] MEDS: GABAPENTIN 300 MG CAP PO SCH ×2 (08:14→13:43)
[2022-05-24] MEDS ORDERED: ONDANSETRON INJ 2 MG/ML 2 ML VIAL IV PRN (09:32)
[2022-05-24] MEDS ORDERED: ePHEDrine sulfate 50 MG/ML AMP IV PRN (09:32)
[2022-05-24] MEDS ORDERED: fentaNYL citrate 100 MCG/2 ML VIAL IV PRN (09:32)
[2022-05-24] MEDS ORDERED: ATROPINE SULFATE 0.1 MG/ML 10ML SYR IV PRN (09:32)
--- NOTE | 2022-05-24 09:32 | Anesthesiology Consultation ---
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 Surgery Operation Date: 05/24/22 08:20 Proposed Procedures p Right L3-L4 Transforaminal Epidural Steroid Injection - Monae Trejo DO Height/Weight Height: 5 ft 5 in Weight: 104.1 kg Allergies Allergy/AdvReac Type Severity Reaction Status Date / Time amoxicillin Allergy Unknown HIVES Verified 05/22/22 23:34 Medications Home Medications Medication Instructions Recorded Confirmed Last Taken topiramate 100 mg tablet 100 mg PO BID #180 tabs 11/18/21 05/22/22 04/07/22 atenolol 25 mg tablet 25 mg PO DAILY #90 tabs 03/18/22 05/22/22 04/07/22 venlafaxine 150 mg 150 mg PO DAILY #90 caps 03/18/22 05/22/22 04/07/22 capsule,extended release 24 hr phentermine 37.5 mg capsule 37.5 mg PO QAM 05/06/22 05/22/22 Unknown diclofenac sodium 75 mg 75 mg PO BID #60 tabs 05/11/22 05/22/22 Unknown tablet,delayed release oxycodone 5 mg tablet 5 mg PO Q6H PRN pain #10 tabs 05/11/22 05/22/22 Unknown gabapentin 300 mg capsule See Rx Instructions .Route 05/17/22 05/22/22 Unknown .COMPLEX #90 caps acetaminophen 500 mg tablet 1,000 mg PO Q8 PRN Pain 05/22/22 05/22/22 Unknown cyclobenzaprine 5 mg tablet 5 mg PO Q8 PRN Muscle Spasm 05/22/22 05/22/22 Unknown Active Medications Generic Name Dose Route Start Last Admin Trade Name Freq PRN Reason Stop Dose Admin Atenolol 25 mg 05/23/22 21:00 05/23/22 21:14 Atenolol 25 Mg Tablet PO 06/22/22 20:59 25 mg HS BRIAN Administration Cyclobenzaprine HCl 5 mg 05/23/22 02:45 05/23/22 07:49 Cyclobenzaprine Hcl 5 Mg Tab PO 06/22/22 02:44 5 mg Q8 PRN Administration Muscle Spasm Diclofenac Sodium 75 mg 05/23/22 09:00 05/24/22 08:13 Diclofenac Sodium 75 Mg Tabcr PO 06/22/22 08:59 75 mg BID BRIAN Administration Enoxaparin Sodium 40 mg 05/23/22 09:00 05/23/22 09:50 Enoxaparin Inj 40 Mg/0.4 Ml Syr SQ 06/22/22 08:59 40 mg Q24H BRIAN Administration Gabapentin 300 mg 05/23/22 09:00 05/24/22 08:14 Gabapentin 300 Mg Cap PO 06/22/22 08:59 Not Given TID BRIAN Dexamethasone 6 mg/ Syringe 1.5 mls @ 1 mls/min 05/23/22 07:00 05/24/22 06:16 IV 06/22/22 06:59 1 mls/min Q8H BRIAN Administration Miscellaneous 1 each 05/23/22 08:00 05/24/22 08:13 Phentermine 37.5 Mg - Order Awaiting Action N/A 06/22/22 07:59 Not Given QS BRIAN Morphine Sulfate 4 mg 05/23/22 14:41 05/23/22 21:16 Morphine Sulfate 4 Mg/Ml 1 Ml Carp\Vial IV 06/06/22 14:40 4 mg Q4H PRN Administration severe pain 7-10 Oxycodone HCl 10 mg 05/23/22 14:41 05/23/22 18:37 Oxycodone Hcl Ir 5 Mg Tab (Immediate Release) PO 06/06/22 02:44 10 mg Q4H PRN Administration Moderate Pain 4-6 Topiramate 200 mg 05/23/22 21:00 05/23/22 21:08 Topiramate 100 Mg Tab PO 06/22/22 20:59 200 mg HS BRIAN Administration Venlafaxine HCl 150 mg 05/23/22 21:00 05/23/22 21:24 Venlafaxine Hcl Xr 150 Mg Capxr PO 06/22/22 20:59 150 mg HS BRIAN Administration Past Medical History Medical History Anxiety Epilepsy Herniated nucleus pulposus, L3-4 right HTN (hypertension) Hypercholesterolemia Migraine without aura Obesity Past Family History Family History Aunt Breast cancer Seizures Grandmother (Maternal) Breast cancer Myocardial infarction Father Colorectal cancer Diabetes Prostate cancer Grandfather (Paternal) Seizures Mother Hypertension Migraines Denies family history of Ovarian cancer Past Surgical History Surgical History H/O section S/P total hysterectomy (2012) w/ b/l salpingectomy, secondary to DUB Social History Smoking Status: Never smoker Hx Alcohol Use: No Hx Substance Use: No Physical Exam Vital Signs Last Vital Signs Temp 98.2 F 05/24/22 07:45 Pulse 75 05/24/22 07:45 Resp 18 05/24/22 07:45 BP 104/65 05/24/22 07:45 Pulse Ox 96 05/24/22 07:45 O2 Del Method 05/24/22 07:45 O2 Flow Rate 0 05/22/22 23:28 Testing Laboratory Results 05/22/22 23:19 05/24/22 06:37
[2022-05-24] MEDS ORDERED: MIDAZOLAM HCL 1 MG/ML 2ML VIAL ONE (09:40)
--- NOTE | 2022-05-24 09:44 | Pain Management Consultation ---
Date of Consultation May 24, 2022 Assessment & Plan (1) Herniated nucleus pulposus, L3-4 right: (2) Lumbar radiculopathy: Plan 1. We discussed her MRI results in detail and at this time recommend right L3-4 transforaminal epidural steroid injection. This will need to be performed after 10 AM due to Lovenox dosing yesterday at 9:50 AM. She is currently NPO. We discussed the risk, benefits, expectations and she agrees to proceed. Informed consent was signed. 2. Recommend outpatient physical therapy to develop strengthening and back protective regimen moving forward. 3. Recommend continuation of diclofenac, benzopyrene, gabapentin, Topamax, and Effexor. 4. Thank you very much for this consultation, we will follow up with the patient tomorrow after her injection. History of Present Illness Attending Physician: hPil Cobos MD History of Present Illness 41-year-old female with 1 to 1-1/2-month history of 50% axial to 50% right L3-4 radicular symptoms. She presented to the [facility] on 05/23/22 with increasing inability to walk due to pain in her right lower extremity. She states that she is fallen 4 times within the last week due to pain and perceived weakness. She denies any bowel or bladder incontinence, foot drop, fever, chills, and or night sweats. She states that she was evaluated in the emergency room and subsequently saw Dr. Shane/RIKKI at [facility] who referred her to Dr. Nguyen. She is unable to see Dr. Nguyen until early to mid May and she felt she was not able to wait that long due to extreme pain. She denies any inciting factors as to the etiology of her pain. She denies any kind of injury. Pain ranges between 3-8 out of 10 currently 4 out of 10 characterizes sharp shooting [id number] " frostbite" type symptoms along her right L3-4 dermatomes. Previous interventions include bedrest, Tylenol, IV steroids, oral steroids, diclofenac, gabapentin 300 mg p.o. 3 times daily, oxycodone, IV morphine, Topamax, Effexor. She has not yet had physical therapy and would like to defer spine surgery if at all possible and opts for interventional pain management at this time. Pain Assessment Full Body Front + Back: 1. 2. [facility] Combined Pain Scale: 4-Mild to Mod - Interrupts ADLs. Decrease in job performance Pain scale - at its best (0-10): 3 Pain scale - at its worst (0-10): 8 Allergies Allergy/AdvReac Type Severity Reaction Status Date / Time amoxicillin Allergy Unknown HIVES Verified 05/22/22 23:34 Home Medications Medication Instructions Recorded Confirmed Type topiramate 100 mg tablet 100 mg PO BID #180 tabs 11/18/21 05/22/22 Rx atenolol 25 mg tablet 25 mg PO DAILY #90 tabs 03/18/22 05/22/22 Rx venlafaxine 150 mg 150 mg PO DAILY #90 caps 03/18/22 05/22/22 Rx capsule,extended release 24 hr phentermine 37.5 mg capsule 37.5 mg PO QAM 05/06/22 05/22/22 History diclofenac sodium 75 mg 75 mg PO BID #60 tabs 05/11/22 05/22/22 Rx tablet,delayed release oxycodone 5 mg tablet 5 mg PO Q6H PRN pain #10 tabs 05/11/22 05/22/22 Rx gabapentin 300 mg capsule See Rx Instructions .Route 05/17/22 05/22/22 Rx .COMPLEX #90 caps acetaminophen 500 mg tablet 1,000 mg PO Q8 PRN Pain 05/22/22 05/22/22 History cyclobenzaprine 5 mg tablet 5 mg PO Q8 PRN Muscle Spasm 05/22/22 05/22/22 History Pain History Pain Intensity Pain scale - at its best (0-10): 3 Pain scale - at its worst (0-10): 8 Patient History Medical History Anxiety Epilepsy Herniated nucleus pulposus, L3-4 right HTN (hypertension) Hypercholesterolemia Migraine without aura Obesity Surgical History H/O section S/P total hysterectomy (2012) w/ b/l salpingectomy, secondary to DUB Family History Aunt Breast cancer Seizures Grandmother (Maternal) Breast cancer Myocardial infarction Father Colorectal cancer Diabetes Prostate cancer Grandfather (Paternal) Seizures Mother Hypertension Migraines Denies family history of Ovarian cancer Social History Smoking Status: Never smoker Second Hand Exposure: Yes; Hx Alcohol Use: No Hx Substance Use: No Preferred Language: Romansh Communication Ability: Effective Visual Impairment: No Limitations Hearing Ability: Normal Lead Project Engineer Required: No Beliefs That Will Affect Care: None marital status: Current Living Situation: Spouse and Family current occupational status: employed 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 occupation: [employer] 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 Other Information That Helps Us Care for You: No Feels Safe at Home: Yes Safety Concerns: Feels Safe At This Time Childhood Exposure to Second-Hand Smoke: No Diet Comment: regular during the past year weight has: remained stable Dental Care, Regularly: Yes Physical Activity Frequency: 3-4 Times per Week Seatbelt Use: always Sunscreen Use: Yes Do you think of yourself as: straight/heterosexual Assistive Devices: Glasses Assistive Devices Comment: partial denture Physical Exam Physical Exam: Constitutional: Well-developed, well-nourished, healthy- appearing, overweight Psych: Awake, alert, and oriented 3 with normal affect and mood. Recent memory appears grossly intact. Pleasant and cooperative on examination Eyes: Pupils are equally round and reactive to light with normal size pupils, eyelids appear normal Ear, nose, mouth, and throat: Moist nasal and oral membranes, lips and tongues appear normal, no external ear abnormalities are noted Neck: The trachea is midline without deviation and no thyromegaly is noted Respiratory: Normal respiratory effort without distress, no audible wheezes or rhonchi CV: Normal S1 and S2, 2+ dorsalis pedis and posterior tibial pulses extremities are warm Chest: Deferred Musculoskeletal: Head is normocephalic and atraumatic, gait not observed Cervical: Lordotic curve: Normal Range of motion is normal with extension, flexion, side-bending, rotation Strength: Strength is grossly equal bilaterally with 5 out of 5 strength in all planes Lumbar: Lordotic curve: Normal Range of motion is lightly decreased with extension, acceptable flexion, side- bending, rotation Tenderness: Moderately tender over the axial midline right L3-5 approximately Facet provocation: Negative bilaterally Straight leg raise: Negative bilaterally, not worse with Achilles stretch Step-off injuries: None Strength: Strength is equal bilaterally with 5 out of 5 strength in all planes Sensation of lower extremities: Intact bilaterally Deep tendon reflexes: Rated at 1+ in bilateral L4 and S1 Myofascial spasm: Mild right-sided paravertebral spinous musculature spasm. No discrete trigger points noted Greater trochanters: Nontender bilaterally Sacroiliac joints: Nontender bilaterally Pathologic reflexes noted: None Skin: No rashes, lesions, ulcers, or induration noted Neuro: No nystagmus noted, the tongue is midline, the patient is able to rotate their head bilaterally : Deferred Results ([facility]) Diagnostic Review MRI: enhanced, non enhanced, reports reviewed, images reviewed and findings discussed with patient MRI Findings: 05/07/22 MR lumbar spine wo/w con CLINICAL HISTORY: 41 years-old Female with severe pain, right leg weak/numb. Subacute low back pain with acute right lower extremity radicular symptoms. COMPARISON: CT lumbar spine 04/08/2022 TECHNIQUE: Multiplanar, multi sequence MRI of the lumbar spine was performed without intravenous contrast. FINDINGS: Mildly motion degraded exam. No acute intra-abdominal or paraspinal abnormality. No acute fracture, subluxation, endplate erosion, suspicious bone lesion or significant marrow edema. The conus medullaris terminates at the T12-L1 level. S ignal within the imaged thoracic spinal cord and cauda equina is unremarkable. 1.2 cm T11 and 1.0 cm L1 vertebral body hemangiomata. Mild multilevel facet arthrosis. T12-L1: No central canal or neural foraminal stenosis. L1-L2: No central canal or neural foraminal stenosis. L2-L3: No central canal or neural foraminal stenosis. L3-L4: Mild intervertebral disc space narrowing with disc desiccation. Small posterior annular disc bulge. Annular fissure with right paracentral/right lateral recess disc protrusion measuring approximately 1.7 cm transversely. This abuts and posteriorly displaces the right L4 nerve root resulting in moderate right lateral recess narrowing. Additionally, there is mild central canal stenosis, AP dimension of the thecal sac measuring 8.5 mm. The left neural for amen is patent. Moderate right neural foraminal narrowing. L4-L5: No central canal or neural foraminal stenosis. L5-S1: Mild intervertebral disc space narrowing with disc desiccation. Small central disc protrusion flattens the ventral thecal sac and abuts the right S1 nerve root. No significant central canal or neural foraminal narrowing. IMPRESSION: 1. Discogenic degeneration at L3-L4 with right paracentral/right lateral recess disc protrusion abutting and displacing the right L4 nerve root resulting in moderate right lateral recess stenosis with mild central canal and moderate right foraminal narrowing. 2. Mild discogenic degeneration at L5-S1. CT: non enhanced, reports reviewed and findings discussed with patient CT Findings: 04/08/22 CT lumbar spine wo con CLINICAL HISTORY: R low back pain/R flank TECHNIQUE: Multidetector row helical CT of the lumbar spine was performed without administration of intravenous contrast. Coronal and sagittal reformations were obtained. Automated dose lowering techniques and/or adjustment according to patient size were utilized for this exam. CT DOSE: 1287.14 mGy.cm Comparison: None available at the time of this dictation. FINDINGS: For counting purposes, the last complete intervertebral disc space is considered L5-S1. No acute fractures are identified. Vertebral body heights and disk spaces are well maintained. Vertebral body alignment is within normal limits. Surrounding soft tissues are unremarkable. IMPRESSION: No evidence of acute bony injury. Previous Records Review Previous Records: personally reviewed by or Opioid Risk Assessment Opioid Risk Assessment: risk assessment performed and no issues identified
[2022-05-24] MEDS ORDERED: methylPREDNISolone acetate 80 MG/ML VIAL ONE (09:51)
[2022-05-24] MEDS ORDERED: LIDOCAINE 2% LOCAL 50 ML VIAL ONE (09:51)
[2022-05-24] MEDS ORDERED: LIDOCAINE 2% MPF LOCAL 5 ML VIAL INFIL ONE ×2 (10:16→10:46)
--- NOTE | 2022-05-24 10:47 | Operative Report ---
Post Operative Report Pre & Post Diagnosis Operation Date: 05/24/22 08:20 Pre-Op Diagnosis: (1) Herniated nucleus pulposus, L3-4 right: (2) Lumbar radiculopathy: Post-Op Diagnosis: (1) Herniated nucleus pulposus, L3-4 right: (2) Lumbar radiculopathy: I identified the patient and participated in the time-out.: Yes Procedure Operation Date: 05/24/22 08:20 Actual Procedures p Right L3-L4 Transforaminal Epidural Steroid Injection(Right) - Monae Trejo DO Surgeon Monae Trejo DO Bid Manager none Estimated Blood Loss 0 Findings Consistent with Post-Op Diagnosis Fluids per anes record Specimens none Drains none Anesthesia Type MAC Complications none Disposition Accompanied Patient To Recovery: No Disposition: Recovery Room Indications lumbar disc herniation with radiculopathy Description of Procedure TRANSFORAMINAL EPIDURAL STEROID INJECTION (DIAGNOSTIC) Diagnosis: Lumbar Radiculitis and Herniated Disc Level injected: Right L3-4 Surgeon: Dr. Monae Trejo Anesthesia: local Material forwarded to lab: none Prior to starting, the Patients diagnosis and the procedure were reviewed with the patient in detail. Possible risks, complications and alternative therapies were also reviewed. Patients questions were answered. Informed consent was obtained. Allergies and medication list was reviewed. The patient was brought to the operating room and placed in prone position on the table. Immediately prior to starting the procedure, a ``time out was conducted with the staff and the patient where the patient was identified, proposed procedure was verified, consent was reviewed and the proper site for the planned procedure was identified. Fluoroscopy was utilized in performing the procedure to assist the placement of the needle, to evaluate the final position of the needle prior to injection and to avoid intravascular injection. Monitors used included intermittent blood pressure with automated device, continuous pulse oximetry and level of consciousness. The patient was given sedation per anesthetic record. Lumbar-sacral area was prepped with duraprep and betadine solution. Sterile drapes were applied. The appropriate interspace and disk was identified in a true AP view. The fluoroscope was then rotated to obtain a decubitus view in such a manner so that the superior articular process of the inferior vertebra was bisecting the pars inter-articularis of the vertebra above in two or in the 6 oclock position. Next, 4 mL of 2% lidocaine preservative-free was injected for local skin anesthesia. Then, a 22 Gauge 5 inch curved (15 degrees) spinal needle was inserted through the skin and subcutaneous tissues and advanced in a co-axial technique. Needle tip was first placed on the infero-lateral margin of the pars inter-articularis. Once the bony margin was contacted, the C-arm was r otated to obtain a lateral view. The needle was slowly ``walked off the bone and advanced toward the anterior and superior aspect of the foramen. Patient did not experience any pain or paresthesia. A six inch micro bore tubing was attached to the needle and aspiration did not demonstrate CSF or blood. Nonionic Isovue contrast 1ml was injected via the needle under live fluoroscopy. Spread of the contrast along the nerve root. AP view was checked to ensure the needle tip was in the close proximity to the nerve root an in the proximal neural foramen lateral to the inferior articular process and in the 6 oclock position. Additional 1ml of the contrast was injected under live fluoroscopy. Neither subdural or subarachnoid spread nor intravascular uptake was noted on plain fluoroscopy. Approximately 10 to 15 second digital subtraction angiogram at 3 f/s rate was done in an AP view with additional contrast. No vascular uptake was noted. Next 80mg depomedrol was injected followed by 2% lidocaine-MPF 1ml to flush the needle. The patient noted pressure in the area of typical pain during the procedure. Adequate hemostasis was noted. A sterile Band-Aid was applied to the injection site. The patient was taken to the recovery room in stable condition. I attest to the content of the Intraoperative Record and any orders documented therein. Any exceptions are noted below.
[2022-05-24] MEDS ORDERED: IOPAMIDOL INJ 61% 15 ML VIAL INJ ONE (10:48)
--- NOTE | 2022-05-24 11:34 | Anesthesiology Progress Note ---
Date of Service May 24, 2022 Anesthesia Post Procedure Vital Signs Vital Signs: Temp Pulse Pulse Resp BP BP Pulse Ox 05/24/22 11:20 80 15 120/81 94 05/24/22 11:10 79 15 121/75 93 05/24/22 11:00 97.5 F L 83 15 131/84 93 05/24/22 10:50 79 17 115/81 93 05/24/22 10:44 97.5 F L 84 18 127/80 96 05/24/22 09:50 99.1 F 88 18 126/82 05/24/22 07:45 98.2 F 75 18 104/65 96 05/23/22 19:32 99.0 F 81 18 128/80 96 05/23/22 14:38 98.8 F 114 H 16 121/73 95 O2 Del Method 05/24/22 11:20 Room Air 05/24/22 11:10 Room Air 05/24/22 11:00 Room Air 05/24/22 10:50 Room Air 05/24/22 10:44 Room Air 05/24/22 09:50 05/24/22 07:45 Room Air 05/23/22 19:32 Room Air 05/23/22 14:38 Room Air Pain Intensity Right Lower Back: Pain Intensity: 8 Transfer of Care Handoff Completed per policy Notes Mental Status: alert / awake / arousable and participated in evaluation Patient Amnestic to Procedure: Yes Nausea / Vomiting: adequately controlled Pain: adequately controlled Airway Patency, RR, SpO2: stable & adequate BP & HR: stable & adequate Hydration State: stable & adequate Anesthetic Complications: no major complications apparent and Pt Satisfied with anesthetic care
--- NOTE | 2022-05-24 11:46 | Discharge Summary ---
Date of Service May 24, 2022 Admission HPI Per Admitting Provider The patient is a 41-year-old female with a past medical history including low back pain, lumbar radiculopathy, obesity, hypercholesterolemia, anxiety, migraine without aura, hypertension and epilepsy. She presents to the emergency department with inability to tolerate her progressive low back pain and right lower extremity weakness and numbness. She has been followed by her PCP, and was recently seen by [facility], and has a pending appointment with Dr. Nguyen for pain management. She reports that she is unaware of how the pain began, she says she woke up 1 day and it was there. Principal Diagnosis HNP Lumbar spine w/ R sided radiculopathy Discharge Exam GENERAL: 41 yo middle aged obese WF. NAD. LUNGS: Clear to auscultation bilaterally. No W/R/R. CARDIOVASCULAR: Regular rate and rhythm. No M/G/R. No JVD. ABDOMEN: Soft, non-tender and non-distended. BS normal x 4 quad. EXTREMITIES: No edema. Non-tender. Peripheral pulses +2/4. NEUROLOGIC: A&O x3. Decreased strength in RLE with diminished sensation/numbness of medial distal RLE PSYCHIATRIC: Cooperative. Appropriate mood and affect. SKIN: Warm, dry, intact. No rashes or lesions. Discharge Data Allergies Allergy/AdvReac Type Severity Reaction Status Date / Time amoxicillin Allergy Unknown HIVES Verified 05/22/22 23:34 Consultations 05/23/22 00:31 ED Decision to Admit Stat 05/23/22 01:17 Consult Orthopedic Surgery Routine 05/23/22 07:45 Consult Pain Management Routine Procedures Performed Operation Date: 05/24/22 08:20 Actual Procedures p Right L3-L4 Transforaminal Epidural Steroid Injection(Right) - Monae Trejo DO Ordered Studies MR lumbar spine wo/w con CLINICAL HISTORY: 41 years-old Female with severe pain, right leg weak/numb. Subacute low back pain with acute right lower extremity radicular symptoms. COMPARISON: CT lumbar spine 04/08/2022 TECHNIQUE: Multiplanar, multi sequence MRI of the lumbar spine was performed without intravenous contrast. FINDINGS: Mildly motion degraded exam. No acute intra-abdominal or paraspinal abnormality. No acute fracture, subluxation, endplate erosion, suspicious bone lesion or significant marrow edema. The conus medullaris terminates at the T12-L1 level. Signal within the imaged thoracic spinal cord and cauda equina is unremarkable. 1.2 cm T11 and 1.0 cm L1 vertebral body hemangiomata. Mild multilevel facet arthrosis. T12-L1: No central canal or neural foraminal stenosis. L1-L2: No central canal or neural foraminal stenosis. L2-L3: No central canal or neural foraminal stenosis. L3-L4: Mild intervertebral disc space narrowing with disc desiccation. Small posterior annular disc bulge. Annular fissure with right paracentral/right lateral recess disc protrusion measuring approximately 1.7 cm transversely. This abuts and posteriorly displaces the right L4 nerve root resulting in moderate right lateral recess narrowing. Additionally, there is mild central canal stenosis, AP dimension of the thecal sac measuring 8.5 mm. The left neural foramen is patent. Moderate right neural foraminal narrowing. L4-L5: No central canal or neural foraminal stenosis. L5-S1: Mild intervertebral disc space narrowing with disc desiccation. Small central disc protrusion flattens the ventral thecal sac and abuts the right S1 nerve root. No significant central canal or neural foraminal narrowing. IMPRESSION: 1. Discogenic degeneration at L3-L4 with right paracentral/right lateral recess disc protrusion abutting and displacing the right L4 nerve root resulting in moderate right lateral recess stenosis with mild central canal and moderate right foraminal narrowing. 2. Mild discogenic degeneration at L5-S1. ACT 112: Negative or not required by law. The above report was generated using voice recognition software. It may contain grammatical, syntax or spelling errors. Hospital Course (1) Herniated nucleus pulposus, L3-4 right: - Right HNP L3-4/right L4 radiculopathy/intractable low back pain/right lower extremity numbness and subjective weakness- - Received dexamethasone 10 mg IV in the ED - Continued on dexamethasone 6 mg IV every 8 hours - Acetaminophen 1000mg p.o. every 8 hours as needed mild pain or fever - Oxycodone 10mg q4h prn moderate pain (4-6) and Morphine 4mg IV q4h prn severe pain (7-10) ordered - Consulted neurosurgery spine surgery Dr. Shane, seen by PAGiovany, appreciate recommendations- since pt requested no surgery, pain management advised - Pain management consulted, seen 05/24, plan for epidural steroid injection - Pt much more comfortable today was able to sleep overnight, steroid injection performed, tolerated well, able to ambulate w/o issue - Plan for d/c home today with outpatient f/u with pain management and Dr. Shane (2) Obesity: - Continue phentermine (3) Anxiety: Anxiety/epilepsy- Continue gabapentin, topiramate and venlafaxine (4) Epilepsy: - See above (5) HTN (hypertension): - Continue atenolol, well controlled Plan Underwent JACKIE today with pain management. Medically stable for discharge home today with outpatient f/u with pain management and orthospine. Plan d/w Dr. Cobos who has also seen and evaluated this patient and agrees with aforementioned. Total Time Total Time Spent Total Time Spent (In Minutes): <30 minutes Discharge Plan Discharge Items Patient Disposition: Home - Self-Care Reason For Visit: INTRACTABLE LBR, LUMBAR RADICULOPATHY Discharge Diagnosis: herniated lumbar disc Condition on Discharge: Good Activity: Resume your previous activity Non-emergency contact: Primary Care Provider and Surgeon Call non-emergency contact if: you have any medication questions, your symptoms worsen and your pain is not controlled Follow-up/Referrals: Monae Trejo DO [Physician] - (PAIN MANAGEMENT OFFICE WILL CALL THE PATIENT FOR FOLLOW UP APPT) Mar Ho DO [Primary Care Provider] - 06/03/22 10:20 am (APPT WITH [facility]) Irwin Shane DO [Surgeon] - (PATIENT WILL CALL DR SHANE IF SHE FEELS SHE NEEDS AN APPOINTMENT.) Diet: Regular Addtl Attending Provider Instructions: You were hospitalized with lower back pain with radiation down your right leg. This is due to a herniated disc at the lumbar level of your spine. You were seen by orthopedics and because you preferred to avoid surgery, pain management for an epidural steroid injection which was performed on 05/24/22. At this time, you are being discharged to home. Please follow all instructions as provided by pain management including your recommended scheduled follow up. Also, we recommend that you follow up with Dr. Shane. If you have any questions or concerns after you are discharged, you may call the nonemergency number listed on your discharge paperwork. Pending Studies at Discharge: No Stand-Alone Forms: [facility], Smoking Cessation Medications and DC Order Prescriptions: Continued topiramate 100 mg tablet 100 mg PO BID Qty: 180 1RF atenolol 25 mg tablet 25 mg PO DAILY Qty: 90 1RF venlafaxine 150 mg capsule,extended release 24hr 150 mg PO DAILY Qty: 90 1RF gabapentin 300 mg capsule See Rx Instructions .Route .COMPLEX Qty: 90 2RF Rx Instructions: Take 1 cap PO qhs x 3 days, then 1 cap PO BID x 3 days, then 1 cap PO TID; diclofenac sodium 75 mg tablet,delayed release (DR/EC) 75 mg PO BID Qty: 60 0RF oxycodone 5 mg tablet 5 mg PO Q6H PRN (Reason: pain) Qty: 10 0RF Rx Instructions: Initial Treatment cyclobenzaprine 5 mg tablet 5 mg PO Q8 PRN (Reason: Muscle Spasm) acetaminophen 500 mg tablet 1,000 mg PO Q8 PRN (Reason: Pain) phentermine 37.5 mg capsule 37.5 mg PO QAM Discharge Orders: Discharge Order (Routine); Ordered 05/24/22 Ordered By: Aleja Orellana Admission Data Admit Date/Time: 05/23/22 01:17 Attending Provider: Phil Cobos Admit Provider: Kam Kinney Primary Care Provider: Mar Ho Other Providers: Irwin Shane ; Kam Kinney ; Gen Kaba Supervising Physician Co-Signing Physician Notes Patient seen and examined, chart reviewed, case discussed with Emily Orellana PA-C and I agree with the assessment and plan as above except as otherwise noted. Patient is seen at the bedside following epidural steroid injection. Endorses some mild discomfort at site of injection. Site without overlying swelling/erythema/hematoma. Right lower extremity with qualitative decrease to soft touch compared to left lower extremity. Ankle dorsiflexion/plantarflexion and hip flexion grossly intact. Seen at the bedside with family present, she reports that she would like to avoid back surgery unless absolutely necessary. Reviewed plan for medical management steroid injections and close follow-up, mell enriquez is in understanding of this and agreeable we will also follow-up with Dr. Shane. Discussed red flag signs including progressive sensory loss, weakness, bowel/bladder change and patient is agreeable to seek immediate medical reevaluation should these occur. No other questions at time of discharge. Agree with plan and management above. Coding Level of Care Code 57818 OBS Care - Discharge Diagnoses Herniated nucleus pulposus, L3-4 right M51.26 Obesity E66.9 Anxiety F41.9 Epilepsy G40.909 HTN (hypertension) I10
[2022-05-24] MEDS: oxyCODONE HCL IR 5 MG TAB (IMMEDIATE RELEASE) PO PRN (12:19)
== END 2022-05-24 15:04 | disposition home or self-care (01) ==
LOC: ED 22:12 → 3N 22:12 → SUATTDRO 05-23 01:17 → 3N 05-23 02:28